=== PATIENT | male | born 1940 | race Caucasian/White ===

== ENCOUNTER → 2016-04-25 | Outpatient (CLI) | payer OTHER | END | disposition home or self-care (01) | LOC: C.LABBFT 08:18 | PROVIDERS: ATTEND Nurse Practitioner Family | DX: E55.9 Vitamin D deficiency, unspecified (principal) ==

== ENCOUNTER → 2016-11-18 | Outpatient (CLI) | payer OTHER | END | disposition home or self-care (01) | LOC: C.LABSPEC 17:29 | PROVIDERS: ATTEND Dermatology | DX: L57.0 Actinic keratosis (principal); L82.1 Other seborrheic keratosis; D04.22 Carcinoma in situ of skin of left ear and external auricular canal; D04.30 Carcinoma in situ of skin of unspecified part of face ==

== ENCOUNTER → 2016-11-25 | Outpatient (CLI) | payer OTHER ==
[~2016-11-25] MED LIST: ASPI-428 PO; ATOR-26 PO; CARV12.52 PO; CHOL100010 PO; FRS/40 PO; ISOS60TA25 PO; LISI40TA PO; NVLNI SC
[2016-11-25 17:29] LABS: ESTIMATED AVERAGE GLUCOSE 157 mg/dl; HA1C FLAG Normal (Normal); PARTIAL THROMBOPLASTIN RATIO 1.2; PROTHROMBIN TIME (PATIENT) 11.1 SECONDS (9.0-12.0)
== END | disposition home or self-care (01) ==
LOC: C.CPL 16:02
PROVIDERS: ATTEND Plastic Surgery
DX: C44.320 Squamous cell carcinoma of skin of unspecified parts of face (principal)

== ENCOUNTER → 2017-01-22 | Outpatient (CLI) | payer OTHER ==
[~2017-01-22] MED LIST changes: -ASPI-428 PO; +HYDR-5688 PO
== END | disposition home or self-care (01) ==
LOC: C.PATHSPEC 17:40
PROVIDERS: ATTEND Plastic Surgery
DX: L90.5 Scar conditions and fibrosis of skin (principal); L57.8 Other skin changes due to chronic exposure to nonionizing radiation

== ENCOUNTER → 2017-03-27 | Outpatient (CLI) | payer OTHER ==
[2017-03-27 12:55] LABS: BASO % 0.6 %; BASO ABS # 0.04 K/uL (0-0.2); EOS % 6.9 %; IG# 0.01 K/uL (0.00-0.02); LYMPH % 30.1 %; LYMPH ABS # 2.17 K/uL (1.2-3.4); MEAN CELL VOLUME 91.5 fL (80-100); MEAN CORPUSCULAR HEMOGLOBIN 30.5 pg (25-34); MEAN CORPUSCULAR HGB CONC 33.3 g/dl (32-36); MEAN PLATELET VOLUME 11.4 fL (7.4-10.4); MONO % 11.5 %; MONO ABS # 0.83 K/uL (0.11-0.59); NEUT % 50.8 %; NEUT ABS # 3.67 K/uL (1.4-6.5); PLATELET COUNT 157 K/uL (130-400); RED CELL DISTRIBUTION WIDTH SD 46.7 fL (36.4-46.3); WHITE BLOOD COUNT 7.22 K/uL (4.8-10.8)
[2017-03-27 14:12] LABS: ALBUMIN 3.7 gm/dl (3.4-5.0); ALT/SGPT 36 U/L (12-78); AST/SGOT 38 U/L (15-37); BLOOD UREA NITROGEN 27 mg/dl (7-18); CALCIUM 9.3 mg/dl (8.5-10.1); CARBON DIOXIDE 27 mmol/L (21-32); CREATININE 1.26 mg/dl (0.60-1.40); GLUCOSE 87 mg/dl (70-99); POTASSIUM 3.9 mmol/L (3.5-5.1); SODIUM 139 mmol/L (136-145)
[2017-03-27 14:13] LABS: ALKALINE PHOSPHATASE 88 U/L (45-117); CHOLESTEROL 83 mg/dl (0-200); LDL CHOLESTEROL CALCULATED 32 mg/dl; TOTAL PROTEIN 7.7 gm/dl (6.4-8.2)
== END | disposition home or self-care (01) ==
LOC: C.LABBFT 08:49
PROVIDERS: ATTEND Physician Assistant Medical
DX: I10 Essential (primary) hypertension (principal); E11.49 Type 2 diabetes mellitus with other diabetic neurological complication; E78.5 Hyperlipidemia, unspecified; E55.9 Vitamin D deficiency, unspecified

== ENCOUNTER 2017-04-19 22:47 | Inpatient (IN) | payer OTHER ==
[~2017-04-19] VITALS: Ht 177.8 cm; Wt 100.8 kg
[2017-04-19] MEDS ORDERED: ASPIRIN 324 MG CHEW ONE (23:02)
--- NOTE | 2017-04-19 23:02 | EMERGENCY ROOM VISIT NOTE ---
History Report prepared by Little: Hilary Rasmussen Under the Supervision of: Dr. Gregory Stuart M.D. First contact with patient: 22:55 Chief Complaint: CHEST PAIN Stated Complaint: CHEST PAIN, LEFT ARM PAIN- CARDIAC HX Nursing Triage Summary: Pt presents with c/o substernal cp around left side of chest and into left arm. 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 Pt states, "I've had this the past couple nights when I go to bed." Denies sob, dizziness/lightheaded, n/v. Pt reports bypass in 1991, stents placed in 2001. History of Present Illness The patient is a 76 year old male who presents to the Emergency Room with complaints of waxing and waning chest pain that started three days ago. The patient rates his pain a 3/10 in severity. He notes he has left arm pain. He states his left arm was weak but now it is more painful. He reports his chest pain is worse when laying down. He notes when he turns his head to the right, he feels a "catch" in his left lower neck. The patient had a bypass surgery in 1991 and stents placed in 2001. His mechanical planner is Dr. Hanson. He notes he has never had a heart catheterization. He does not have a pacemaker in place. He has no history of gallbladder issues. The patient denies any shortness of breath , heart palpitations, dizziness, or abdominal pain. Modifying Factors (Worsening): other (laying flat) Associated Symptoms: No SOB, No abdominal pain Note: Additional symptoms: left arm pain. Denies: heart palpitations, dizziness. Review of Systems See HPI for pertinent positives & negatives. A total of 10 systems reviewed and were otherwise negative. Past Medical & Surgical Medical Problems: (1) NSTEMI (non-ST elevated myocardial infarction) Social History Smoking Status: Former Smoker Marital Status: Housing Status: lives with significant other Current/Historical Medications Scheduled Aspirin (Ecotrin Low Strength), 81 MG PO DAILY Atorvastatin (Lipitor), 80 MG PO HS Carvedilol (Coreg), 12.5 MG PO BID Cholecalciferol (Vitamin D), 3,000 UNITS PO DAILY Furosemide (Lasix), 40 MG PO DAILY Glipizide (Glipizide Er), 10 MG PO BID Insulin Human NPH (Novolin N), 1 DOSE SC BID Insulin Human NPH (Novolin N), 30 UNITS SQ QAM Insulin Human NPH (Novolin N), 34 UNITS SQ QPM Isosorbide Mononitrate Ext Rel (Imdur Ext Rel), 60 MG PO DAILY Lisinopril (Zestril), 40 MG PO DAILY Repaglinide (Prandin), 2-4 MG PO WITH EVENING MEAL Scheduled PRN Hydrocodone/Acetaminophen 5MG/325MG ([place] 5MG/325MG), 1 TABLET PO Q4 PRN for Pain Allergies Coded Allergies: No Known Allergies (Verified , 12/03/16) Physical Exam Vital Signs Date Time Temp Pulse Resp B/P (MAP) Pulse Ox O2 Delivery O2 Flow Rate FiO2 04/20/17 00:04 81 20 172/81 96 Room Air 04/19/17 23:54 76 04/19/17 22:49 36.3 84 16 185/89 96 Room Air Physical Exam GENERAL: Patient is well appearing and in mild distress. HEENT: No acute trauma, normocephalic atraumatic, mucous membranes moist, no nasal congestion, no scleral icterus. NECK: No stridor, no adenopathy, no meningismus, trachea is midline. LUNGS: No dyspnea. Clear to auscultation and equal bilaterally. No wheeze, no rhonchi. HEART: Regular rate and rhythm with periodic extra beats. No murmurs, rubs, gallops appreciated. ABDOMEN: Soft, nontender, bowel sounds positive, no masses appreciated, no peritonitis. BACK: No midline tenderness, no CVA tenderness EXTREMITIES: Normal motion all extremities, no cyanosis, no edema. NEUROLOGIC: Alert and oriented, no acute motor or sensory deficits, no focal weakness, cranial nerves grossly intact. SKIN: No rash, no jaundice, no diaphoresis. Medical Decision & Procedures ER Provider Diagnostic Interpretation: X ray results are stated below per my interpretation: Chest: 1 view: No infiltrate, no effusion, normal cardiac border. Enlarged heart with mild congestive findings, sternotomy wires intact. Laboratory Results 04/19/17 23:00 Red Blood Count 4.95, Mean Corpuscular Volume 90.3, Mean Corpuscular Hemoglobin 30.7, Mean Corpuscular Hemoglobin Concent 34.0, Mean Platelet Volume 10.9, Neutrophils (%) (Auto) 52.6, Lymphocytes (%) (Auto) 27.8, Monocytes (%) (Auto) 12.4, Eosinophils (%) (Auto) 6.2, Basophils (%) (Auto) 0.9, Neutrophils # (Auto ) 4.32, Lymphocytes # (Auto) 2.28, Monocytes # (Auto) 1.02, Eosinophils # (Auto ) 0.51, Basophils # (Auto) 0.07 04/19/17 23:00 Test 04/19/17 23:00 04/19/17 23:10 White Blood Count 8.21 K/uL (4.8-10.8) Red Blood Count 4.95 M/uL (4.7-6.1) Hemoglobin 15.2 g/dL (14.0-18.0) Hematocrit 44.7 % (42-52) Mean Corpuscular Volume 90.3 fL (80-100) Mean Corpuscular Hemoglobin 30.7 pg (25-34) Mean Corpuscular Hemoglobin Concent 34.0 g/dl (32-36) Platelet Count 187 K/uL (130-400) Mean Platelet Volume 10.9 fL (7.4-10.4) Neutrophils (%) (Auto) 52.6 % Lymphocytes (%) (Auto) 27.8 % Monocytes (%) (Auto) 12.4 % Eosinophils (%) (Auto) 6.2 % Basophils (%) (Auto) 0.9 % Neutrophils # (Auto) 4.32 K/uL (1.4-6.5) Lymphocytes # (Auto) 2.28 K/uL (1.2-3.4) Monocytes # (Auto) 1.02 K/uL (0.11-0.59) Eosinophils # (Auto) 0.51 K/uL (0-0.5) Basophils # (Auto) 0.07 K/uL (0-0.2) RDW Standard Deviation 45.7 fL (36.4-46.3) RDW Coefficient of Variation 13.8 % (11.5-14.5) Immature Granulocyte % (Auto) 0.1 % Immature Granulocyte # (Auto) 0.01 K/uL (0.00-0.02) Prothrombin Time 11.0 SECONDS (9.0-12.0) Prothromb Time International Ratio 1.0 (0.9-1.1) Activated Partial Thromboplast Time 28.7 SECONDS (21.0-31.0) Partial Thromboplastin Ratio 1.1 Anion Gap 8.0 mmol/L (3-11) Est Creatinine Clear Calc Drug Dose 45.9 ml/min Estimated GFR () 47.1 Estimated GFR (Non- 40.6 BUN/Creatinine Ratio 21.1 (10-20) Calcium Level 9.0 mg/dl (8.5-10.1) Total Creatine Kinase 127 U/L (39-308) Creatine Kinase MB 1.3 ng/ml (0.5-3.6) Creatine Kinase MB Ratio 1.0 (0-3.0) Troponin I 0.414 ng/ml (0-0.045) Bedside Troponin I 0.480 ng/ml (0-0.045) Laboratory results as reviewed by me. Medications Administered Medications (Trade) Dose Ordered Sig/Malinda Route Start Time Stop Time Status Last Admin Dose Admin Aspirin (Aspirin Chew) 324 mg NOW STAT PO 04/19/17 23:03 04/19/17 23:04 DC 04/19/17 23:03 324 MG Nitroglycerin (Nitrostat Tab) 0.4 mg PRN PRN SL 04/19/17 23:15 04/20/17 02:16 DC 04/19/17 23:09 0.4 MG Nitroglycerin (Nitroglycerin 2% Oint) 1 inch NOW ONCE EXT 04/19/17 23:45 04/19/17 23:46 DC 04/20/17 00:03 1 INCH Heparin Sodium/ Dextrose (Heparin 25,000 Unit/500ml D5W) 25,000 unit STK-MED ONCE .ROUTE 04/19/17 23:54 04/19/17 23:55 DC 04/20/17 00:02 25,000 UNIT ECG Per My Interpretation Indication: chest pain Rate (beats per minute): 74 Rhythm: sinus rhythm Findings: PAC, ST depression (moderate, anterior), other Comparison ECG Date: 10/08/2001 Change: Deepening of T waves in anterior leads when compared to previous, RBBB similar to previous. ED Course 2255: The patient was evaluated in room B10. A complete history and physical exam was performed. 2325: I asked nursing staff to perform a repeat EKG. 2330: Repeat EKG: Improvement in ST depressions, PAC, RBBB, sinus rhythm, rate of 70. 2340: The patient notes his pain has resolved after third NTG. 2345: I discussed pros and cons of Heparin with the patient and risks associated with it. He has agreed to anticoagulation. 2346: I spoke with Dr. Dwyer, Hospitalist, about the patient's case. He will evaluate for further treatment. 2350: I further discussed the patient's case with Dr. Dwyer and reviewed the patient's EKG's. Medical Decision Differential: Cardiac Ischemia (STEMI, NSTEMI, Unstable Angina, etc), Aortic Dissection, Arrhythmia, Pulmonary Embolism, Pneumonia, Pneumothorax, MSK, Infectious, Pericarditis/Myocarditis, Esophageal Rupture, Gastrointestinal, amongst other pathologies entertained. 76 yr old male with extensive cardiac history arrives with 3 evenings of left chest pain tonight radiating to left shoulder. EKG with some depressions without STEMI. Given SLNTG x 3 with improvement in pain, as well as 324mg ASA. CXR without evidence dissection. Pulses intact/equal. Labs with elevated Trop beyond that which expected with renal insufficiency. With his symptoms, history, EKG changes and elevated trop this is consistent with NSTEMI. Discussed heparin contraindications and risks with patient who agrees with anticoagulation. No evidence this is PE, dissection. No abdominal pain as source. Multiple re-evaluations of patient throughout, as well as discussions with hospitalist service. With resolution of pain he does not meet emergent cath criteria. Tolerated heparin well while here in ED. Medication Reconcilliation Current Medication List: was personally reviewed by me Blood Pressure Screening Patient's blood pressure: Elevated blood pressure Will be monitored by hospitalist. Consults Time Called: 2343 Consulting Physician: Dr. Dwyer, Hospitalist Returned Call: [phone] Dwyer, Hospitalist, about the patient's case. He will evaluate for further treatment. Impression Primary Impression: NSTEMI (non-ST elevated myocardial infarction) Critical Care I have personally spent greater than 35 minutes of critical care time in the direct management of this patient. This was a life/limb threatening event. This includes time spent evaluating patient, direct bedside care, chart review, placing orders, interpretation of diagnostic studies, discussion with consultants, patient, and family members, as well as other required patient management activities. This 35 minutes is in excess of all separately billable procedures. Scribe Attestation The scribe's documentation has been prepared under my direction and personally reviewed by me in its entirety. I confirm that the note above accurately reflects all work, treatment, procedures, and medical decision making performed by me. Departure Information Dispostion Being Evaluated By Hospitalist Referrals Navneet Baeza M.D. (PCP) Patient Instructions My [facility]
[2017-04-19] MEDS ORDERED: NITROGLYCERIN 0.4 MG SL PER TAB CHARGE ONE (23:03)
[2017-04-19] MEDS ORDERED: ASPIRIN 324 MG CHEW PO STA (23:03)
[2017-04-19] MEDS ORDERED: NITROGLYCERIN 0.4 MG SL PER TAB CHARGE SL PRN (23:15)
[2017-04-19 23:19] LABS: BASO % 0.9 %; BASO ABS # 0.07 K/uL (0-0.2); EOS % 6.2 %; EOS ABS # 0.51 K/uL (0-0.5); HEMATOCRIT 44.7 % (42-52); HEMOGLOBIN 15.2 g/dL (14.0-18.0); IG# 0.01 K/uL (0.00-0.02); LYMPH % 27.8 %; LYMPH ABS # 2.28 K/uL (1.2-3.4); MEAN CELL VOLUME 90.3 fL (80-100); MEAN CORPUSCULAR HEMOGLOBIN 30.7 pg (25-34); MEAN PLATELET VOLUME 10.9 fL (7.4-10.4); MONO % 12.4 %; MONO ABS # 1.02 K/uL (0.11-0.59); NEUT % 52.6 %; NEUT ABS # 4.32 K/uL (1.4-6.5); PLATELET COUNT 187 K/uL (130-400); RED CELL DISTRIBUTION WIDTH CV 13.8 % (11.5-14.5); RED CELL DISTRIBUTION WIDTH SD 45.7 fL (36.4-46.3); WHITE BLOOD COUNT 8.21 K/uL (4.8-10.8)
[2017-04-19 23:32] LABS: PTT PATIENT 28.7 SECONDS (21.0-31.0)
[2017-04-19 23:43] LABS: CREATININE 1.61 mg/dl (0.60-1.40); POTASSIUM 3.8 mmol/L (3.5-5.1)
[2017-04-19] MEDS ORDERED: NITROGLYCERIN 2% OINTMENT 30GM TUBE EXT ONE (23:45)
[2017-04-19] MEDS ORDERED: HEPARIN SOD (PORCINE) 1000 UNIT/ML 10 ML VIAL ONE (23:53)
[2017-04-19] MEDS ORDERED: HEPARIN 25000 UNIT/500 ML D5W ONE (23:54)
[2017-04-19 23:57] LABS: CKMB 1.3 ng/ml (0.5-3.6)
[2017-04-20] VITALS (9 sets, daily range): BP systolic 124–185; BP diastolic 68–99; PULSE 53–74; TEMP 36.4–37; O2SAT 94–98; Ht 177.8 cm; Wt 100.8 kg
[2017-04-20] MEDS ORDERED: POLYETHYLENE (MIRALAX) 17 GM PACK PO PRN
[2017-04-20] MEDS ORDERED: MoRPHine SULFATE 4 MG/ML 1 ML CARP\\VIAL IV PRN
[2017-04-20] MEDS ORDERED: MAGNESIUM HYDROXIDE SUSP 30 ML UDC PO PRN
[2017-04-20] MEDS ORDERED: ONDANSETRON INJ 2 MG/ML 2 ML VIAL IV PRN
[2017-04-20] MEDS ORDERED: NITROGLYCERIN 0.4 MG SL PER TAB CHARGE SL PRN
[2017-04-20] MEDS ORDERED: ALUMINUM/MAGNESIUM/SIMETH (MAALOX MAX) 30 ML UDC PO PRN
[2017-04-20] MEDS ORDERED: ACETAMINOPHEN 325 MG TAB PO PRN
[2017-04-20] MEDS ORDERED: GLIP-199 PO (00:03)
[2017-04-20] MEDS ORDERED: ASPI-428 PO (00:06)
[2017-04-20] MEDS ORDERED: NVLNI SQ ×2 (00:09→00:11)
[2017-04-20] MEDS ORDERED: REPA2TAB12 PO (00:13)
[2017-04-20] MEDS ORDERED: NITROGLYCERIN 2% OINTMENT 30GM TUBE EXT SCH ×2 (00:15)
--- NOTE | 2017-04-20 00:22 | History and Physical ---
History & Physical Date & Time of Service: Apr 20, 2017 at 00:09 Chief Complaint: Chest Pain, Left Arm Pain- Cardiac Hx Primary Care Physician: Navneet Baeza M.D. History of Present Illness Source: patient, hospital records 76 y/o M Hx HTN, HPL, DM, CAD. Pt developed pain in his left upper chest, radiating to his L arm, accompanied by SOB. Denies N/V, diaphoresis or lightheadedness. His pain was relieved following 3 doses of NTG provided in the ER. An initial troponin is elevated. An EKG revealed anterior T wave inversions. These were present on a previous EKG but were more pronounced. A repeat EKG when his CP subsided resembles his baseline. Labs are also notable for REHAN. Past Medical/Surgical History 1) HTN 2) HPL 3) DM II 4) CAD - 3 V CABG 1991, 5 stents placed 2001 Family History CAD Social History Smoking Status: Former Smoker Marital Status: Allergies Coded Allergies: No Known Allergies (Verified , 12/03/16) Home Medications Scheduled Aspirin (Ecotrin Low Strength), 81 MG PO DAILY Atorvastatin (Lipitor), 80 MG PO HS Carvedilol (Coreg), 12.5 MG PO BID Cholecalciferol (Vitamin D), 3,000 UNITS PO DAILY Furosemide (Lasix), 40 MG PO DAILY Glipizide (Glipizide Er), 10 MG PO BID Insulin Human NPH (Novolin N), 1 DOSE SC BID Isosorbide Mononitrate Ext Rel (Imdur Ext Rel), 60 MG PO DAILY Lisinopril (Zestril), 40 MG PO DAILY Scheduled PRN Hydrocodone/Acetaminophen 5MG/325MG ([place] 5MG/325MG), 1 TABLET PO Q4 PRN for Pain Review of Systems Constitutional: No fever, No chills, No sweats Eyes: No worsening of vision ENT: No hearing loss, No unusual epistaxis, No nasal symptoms Respiratory: + shortness of breath, No cough, No sputum, No wheezing Cardiovascular: + chest pain, No orthopnea, No PND Abdomen: No pain, No nausea, No vomiting Musculoskeletal: No joint pain Genitourinary - Male: No hematuria, No dysuria, No urinary frequency Neurologic: No memory loss, No paralysis, No weakness Psychiatric: No depression symptoms Endocrine: No fatigue Hematologic / Lymphatic: No abnormal bleeding/bruising Integumentary: No rash Allergic / Immunologic: No environmental allergies Physical Exam Vital Signs Date Time Temp Pulse Resp B/P (MAP) Pulse Ox O2 Delivery O2 Flow Rate FiO2 04/20/17 00:04 81 20 172/81 96 Room Air 04/19/17 23:54 76 04/19/17 22:49 36.3 84 16 185/89 96 Room Air General Appearance: WD/WN, no apparent distress Head: normocephalic Eyes: normal inspection ENT: normal ENT inspection, pharynx normal Neck: supple, no JVD Respiratory/Chest: chest non-tender, lungs clear, normal breath sounds Cardiovascular: regular rate, rhythm, no edema, no gallop Abdomen/GI: normal bowel sounds, non tender, soft Back: normal inspection, no CVA tenderness Extremities/Musculoskelatal: normal inspection, no calf tenderness, normal capillary refill Neurologic/Psych: developer relations manager II-XII nml as tested, no motor/sensory deficits, alert, oriented x 3 Skin: normal color Diagnostics Laboratory Results Results Past 24 Hours Test 04/19/17 23:00 04/19/17 23:10 Range/Units White Blood Count 8.21 4.8-10.8 K/uL Red Blood Count 4.95 4.7-6.1 M/uL Hemoglobin 15.2 14.0-18.0 g/dL Hematocrit 44.7 42-52 % Mean Corpuscular Volume 90.3 80-100 fL Mean Corpuscular Hemoglobin 30.7 25-34 pg Mean Corpuscular Hemoglobin Concent 34.0 32-36 g/dl Platelet Count 187 130-400 K/uL Mean Platelet Volume 10.9 7.4-10.4 fL Neutrophils (%) (Auto) 52.6 % Lymphocytes (%) (Auto) 27.8 % Monocytes (%) (Auto) 12.4 % Eosinophils (%) (Auto) 6.2 % Basophils (%) (Auto) 0.9 % Neutrophils # (Auto) 4.32 1.4-6.5 K/uL Lymphocytes # (Auto) 2.28 1.2-3.4 K/uL Monocytes # (Auto) 1.02 0.11-0.59 K/uL Eosinophils # (Auto) 0.51 0-0.5 K/uL Basophils # (Auto) 0.07 0-0.2 K/uL RDW Standard Deviation 45.7 36.4-46.3 fL RDW Coefficient of Variation 13.8 11.5-14.5 % Immature Granulocyte % (Auto) 0.1 % Immature Granulocyte # (Auto) 0.01 0.00-0.02 K/uL Prothrombin Time 11.0 9.0-12.0 SECONDS Prothromb Time International Ratio 1.0 0.9-1.1 Activated Partial Thromboplast Time 28.7 21.0-31.0 SECONDS Partial Thromboplastin Ratio 1.1 Sodium Level 139 136-145 mmol/L Potassium Level 3.8 3.5-5.1 mmol/L Chloride Level 105 98-107 mmol/L Carbon Dioxide Level 26 21-32 mmol/L Anion Gap 8.0 3-11 mmol/L Blood Urea Nitrogen 34 7-18 mg/dl Creatinine 1.61 0.60-1.40 mg/dl Est Creatinine Clear Calc Drug Dose 45.9 ml/min Estimated GFR () 47.1 Estimated GFR (Non- 40.6 BUN/Creatinine Ratio 21.1 10-20 Random Glucose 143 70-99 mg/dl Calcium Level 9.0 8.5-10.1 mg/dl Total Creatine Kinase 127 39-308 U/L Creatine Kinase MB 1.3 0.5-3.6 ng/ml Creatine Kinase MB Ratio 1.0 0-3.0 Troponin I 0.414 0-0.045 ng/ml Bedside Troponin I 0.480 0-0.045 ng/ml CXR normal EKG Sinus, PACs, RBBB, LAFB, ant inversions present on previous EKG - more pronounced Impression Assessment and Plan 76 y/o M Hx HTN, HPL, DM, CAD. Pt developed pain in his left upper chest, radiating to his L arm, accompanied by SOB. Denies N/V, diaphoresis or lightheadedness. His pain was relieved following 3 doses of NTG provided in the ER. An initial troponin is elevated. An EKG revealed anterior T wave inversions. These were present on a previous EKG but were more pronounced. A repeat EKG when his CP subsided resembles his baseline. Labs are also notable for REHAN. 1) NSTEMI - placed on full dose Heparin. NTG/Morphine PRN, ASA, Plavix, Statin , B noel. Pending cardio eval. 2) REHAN - LAsix and Lisinopril held - IVF provided - he uses Lasix for LE edema only and denies a history of CHF so that it is reasonable to hold diuresis for a period. 3) HTN - cont Carvedilol 4) HPL - cont Lipitor 5) DM - placed on SS Full code - Full dose Heparin Total time for this admit including review of labs, meds, imaging, EKG - discussion with pt and ER attending - 35 min Resuscitation Status VTE Prophylaxis Will order VTE Prophylaxis: Yes
[2017-04-20] MEDS ORDERED: IV FLUIDS COMPLETED PRN ×2 (00:30→03:00)
[2017-04-20] MEDS ORDERED: NSS + 20MEQ KCL 1000ML 1,000 ML IV SCH (02:15)
[2017-04-20] MEDS: INSULIN ASPART 100 UNITS/ML 3 ML PEN SC SCH ×3 (06:00→18:00)
[2017-04-20 06:18] LABS: HEMATOCRIT 41.3 % (42-52); HEMOGLOBIN 14.3 g/dL (14.0-18.0); MEAN CELL VOLUME 88.2 fL (80-100); MEAN CORPUSCULAR HEMOGLOBIN 30.6 pg (25-34); MEAN CORPUSCULAR HGB CONC 34.6 g/dl (32-36); MEAN PLATELET VOLUME 10.9 fL (7.4-10.4); PLATELET COUNT 164 K/uL (130-400); RED CELL DISTRIBUTION WIDTH CV 13.8 % (11.5-14.5); RED CELL DISTRIBUTION WIDTH SD 44.8 fL (36.4-46.3); WHITE BLOOD COUNT 7.64 K/uL (4.8-10.8)
[2017-04-20 06:49] LABS: CALCIUM 8.8 mg/dl (8.5-10.1); CREATININE 1.36 mg/dl (0.60-1.40); POTASSIUM 3.9 mmol/L (3.5-5.1)
[2017-04-20] MEDS: ISOSORBIDE MONONITRATE 60 MG TABCR PO SCH (07:58)
[2017-04-20] MEDS: CARVEDILOL 12.5 MG TAB PO SCH ×2 (07:59→20:27)
[2017-04-20 08:14] LABS: PTT PATIENT 291.5 SECONDS (21.0-31.0)
--- NOTE | 2017-04-20 09:50 | DIAGNOSTIC IMAGING REPORT ---
SINGLE VIEW CHEST CLINICAL HISTORY: Atypical chest pain. FINDINGS: An AP, portable, upright chest radiograph is obtained. No prior studies are available for comparison at the time of dictation. The examination is degraded by portable technique and patient rotation. The patient is status post midline sternotomy. The heart is enlarged and there is atherosclerotic calcification of the thoracic aorta. The pulmonary vasculature is noncongested. Airspace opacities are seen in the left mid to lower lung. No large pleural effusion is identified. No pneumothorax is seen. The skeletal structures are osteopenic. The bony thorax is grossly intact. IMPRESSION: 1. Cardiomegaly without radiographic evidence of congestive failure. 2. Airspace opacities are seen in the left mid to lower lung. This may resent chronic change/scarring or could represent an infectious/inflammatory pneumonitis. Clinical correlation will be required. Radiographic follow-up is recommended. Electronically signed by: Rudy Botello M.D. 04/20/2017 9:49 AM Dictated Date/Time: 04/20/2017 9:47 AM
[2017-04-20 10:03] LABS: PTT PATIENT 183.7 SECONDS (21.0-31.0)
[2017-04-20 11:10] LABS: PTT PATIENT 103.1 SECONDS (21.0-31.0)
[2017-04-20] MEDS ORDERED: NURSING VERBAL MED ORDER ONE (11:30)
[2017-04-20] MEDS ORDERED: NITROGLYCERIN 2% OINTMENT 30GM TUBE EXT ONE (11:32)
[2017-04-20] MEDS ORDERED: ASPIRIN 81 MG ECTAB PO STA (11:55)
[2017-04-20] MEDS ORDERED: CLOPIDOGREL BISULFATE 300 MG TAB PO STA (11:55)
[2017-04-20 13:21] LABS: PTT PATIENT 64.8 SECONDS (21.0-31.0)
[2017-04-20] MEDS: HEPARIN 25,000 UNIT/500ML D5W 500 ML IV PRN ×2 (13:41→21:30)
--- NOTE | 2017-04-20 14:05 | CARDIOLOGY CONSULTATION ---
DATE OF CONSULTATION: 04/20/2017 REQUESTING PHYSICIAN: Dr. Abbott. PIANO BUILDER: Chano Paul D.O., [facility] Cardiology for Dr. Navneet Hanson who is the patient's primary dry transfer worker. REASON FOR CONSULTATION: Coronary artery disease, chest discomfort, and non-ST elevation myocardial infarction. Dear Dr. Diana, Thank you for requesting cardiology consultation on Raymond with regards to his anginal symptoms over the last 2 days. He has noted over the last 48 hours when he would lay down to go to bed at night he would have chest tightness and chest pressure, in the central region and epigastric region that then radiated down his left arm. It would last 30-45 minutes and then candelario on its own and then he would have a period of recurrent symptoms that happened each of the last 2 nights and then last night's episode was significant enough that he came to the Emergency Room. His baseline EKGs reveal sinus rhythm with a right bundle branch block and left anterior fascicular block. He has deeper T-wave inversions in V1 and V2 with ST depression in V3-V6 with associated discomfort. His EKG this morning, he continues to have a right bundle and left anterior fascicular block, the T-wave inversions in V1 and V2 are improved and the ST depression in V3-V6 although still present is significantly better. With a heparin drip and nitro paste, his pain which initially was 5/10 is now down to 1/10. He denies any diaphoresis or shortness of breath, palpitations, lightheadedness, dizziness, presyncope, syncope. He denies having a headache. He denies any bleeding, bruising, dark stools, black stools, fevers, chills, sweats, cough, productive sputum. He notes that his appetite has been stable. Weight has been relatively stable. He notes rare lower extremity edema and does not take diuretics. I inquired as to whether he may have had any anginal symptoms over the last days to weeks with activity and he denied that he had no difficulty climbing stairs. He normally takes the trash to the end of the driveway without any difficulty. He is able to climb 2 flights of stairs in his home. Outside of spending time around the house, he describes as not being overly active. He denies a need for any upcoming surgery or colonoscopy. The rest of review of system otherwise negative. PAST MEDICAL HISTORY: 1. Coronary artery disease status post 3-vessel coronary bypass grafting in 1991. 2. History of angioplasty and stenting with 5 stents in 2001. 3. Hypertension. 4. Hyperlipidemia. 5. Diabetes mellitus type 2. SOCIAL HISTORY: He is a former smoker. He is . Denies any current tobacco use. FAMILY HISTORY: Positive for coronary artery disease. ALLERGIES: No known drug allergies. PHYSICAL EXAMINATION: GENERAL: He is awake, alert, oriented x3. He is in no acute distress. He is a well-appearing male who looks his stated age. VITAL SIGNS: His heart rate is 70, blood pressure 155/71, respirations 16 and sats 94% on room air. NECK: 1+ carotid upstrokes, no evidence of carotid bruits. Jugular pressure appeared normal. HEENT: Sclerae is anicteric. His hearing is mildly reduced. LUNGS: Clear to auscultation bilaterally. No rales, rhonchi or wheezing. HEART: Regular rate and rhythm with occasional ectopy. No appreciable murmurs, rubs or gallops. ABDOMEN: Soft, nontender, nondistended. Positive bowel sounds. EXTREMITIES: Trace bilateral lower extremity edema. PSYCHIATRIC: His affect appeared appropriate. NEUROLOGIC: He is awake, alert and oriented x3. IMAGING DATA: EKG is as discussed above. Chest x-ray - cardiomegaly without evidence of heart failure. LABORATORY STUDIES: Hemoglobin 14.3, platelet count of 164. First troponin 0.414, then 1.19 and the third is 3.11. Sodium 140, potassium 3.9, BUN 34, creatinine 1.36. PTT is 103 on heparin. IMPRESSION: 1. Non-ST elevation myocardial infarction. 2. Deeper T-wave inversions V1-V2 and ST depression in V3-V6 with chest pain. 3. Known coronary artery disease status post coronary bypass grafting in 1991 and angioplasty and stenting in 2001. 4. Hypertension. 5. Hyperlipidemia. PLAN AND RECOMMENDATIONS: In discussion with you at the bedside at this point he is on a heparin drip. He is on beta blockers and aspirin. We Plavix loaded him with 600 mg of Plavix and 75 mg thereafter. He will remain on nitro paste an inch q. 6 hours. I discussed with Raymond and his family that he will need a cardiac catheterization to define his coronary anatomy. We discussed the risks and benefits of cardiac catheterization. Risks including but not limited to bleeding or infection of the puncture site, damage to his radial or femoral artery, risk of contrast-induced nephropathy, allergic reaction to contrast and 100,000 risk of heart attack or stroke or dying with the procedure were discussed. They understand the risks and wished to proceed. PLAN: The plan for now is assuming he remains stable with minimal anginal symptoms is to proceed with catheterization tomorrow. He will be n.p.o. after midnight and will reduce his insulin dose in half, and he will remain on sliding scale insulin. If he were to have progressive symptoms before tomorrow morning and became unstable, then at that point, an urgent cardiac catheterization we warranted and we would proceed over the weekend. Dr. Hanson will be returning tomorrow to care for him. While he is n.p.o., I would give him gentle hydration to protect his renal function with normal saline at 75 mL an hour times a liter in total. If his blood pressure remains elevated after the catheterization, he should be started on lisinopril. If medical therapy is his only option for his coronary artery disease, at that point I would consider amlodipine as an antianginal. Further recommendations will be forthcoming after the catheterization. Thank you for allowing us to participate in his care.
[2017-04-20] MEDS: NITROGLYCERIN 2% OINTMENT 30GM TUBE EXT SCH ×2 (15:55→20:00)
[2017-04-20 19:17] LABS: PTT PATIENT 167.6 SECONDS (21.0-31.0)
[2017-04-20] MEDS: ATORVASTATIN 40 MG TAB PO SCH (20:27)
[2017-04-20 21:01] LABS: PTT PATIENT 103.4 SECONDS (21.0-31.0)
--- NOTE | 2017-04-20 21:53 | Progress Note ---
Subjective Date of Service: Apr 20, 2017. Subjective Pt evaluation today including: conversation w/ patient, conversation w/ family ( at bedside), physical exam, chart review, lab review, review of studies, conversation w/ educational consultant (cardiology), review of inpatient medication list Pain: 3/10 chest heaviness during my AM assessment PO Intake: npo Voiding: no voiding problems tele stable with occasional ventricular bigeminy during my AM rounds he reported he had no chest symptoms all night, then he re- developed chest heaviness about 0630 it was 3/10 during my visit I ordered nitropaste, and within 30-45 min his pain was 1/10 or less he had noticed chest symptoms for about 2-3 days prior to coming to the hospital last pm last intervention was a cath with stents in 2001 none since Review of Systems Constitutional: No fever Respiratory: No cough, No shortness of breath Cardiac: + chest pain, No orthopnea, No PND, No edema Abdomen: No pain, No nausea, No vomiting Objective Vital Signs Date Time Temp Pulse Resp B/P (MAP) Pulse Ox O2 Delivery O2 Flow Rate FiO2 04/20/17 20:00 Room Air 04/20/17 19:53 36.5 68 20 135/73 (93) 96 Room Air 04/20/17 16:00 Room Air 04/20/17 15:51 36.8 63 16 124/73 (90) 95 Room Air 04/20/17 12:17 36.4 70 16 155/71 (99) 94 Room Air 04/20/17 12:00 Room Air 04/20/17 11:46 69 152/78 (102) 04/20/17 11:36 157/80 (105) 04/20/17 08:02 36.8 74 20 158/84 (108) 97 Room Air 04/20/17 08:00 Room Air 04/20/17 04:00 98 Room Air 04/20/17 04:00 36.6 70 18 162/68 (99) 95 Room Air 04/20/17 01:48 36.8 71 20 185/99 98 Room Air 04/20/17 01:02 68 18 178/97 96 Nasal Cannula 2.0 04/20/17 00:04 81 20 172/81 96 Room Air 04/19/17 23:54 76 04/19/17 22:49 36.3 84 16 185/89 96 Room Air Physical Exam General Appearance: no apparent distress ENT: pharynx normal Neck: no JVD Respiratory/Chest: lungs clear, no respiratory distress, no accessory muscle use Cardiovascular: regular rate, rhythm, no gallop, no murmur Abdomen: normal bowel sounds, non tender, soft, no organomegaly Extremities: no pedal edema Neurologic/Psychiatric: alert, oriented x 3 Skin: + pertinent finding (sternal scar, midline) Laboratory Results Last 24 Hours Test 04/19/17 23:00 04/19/17 23:10 04/20/17 05:30 04/20/17 06:44 White Blood Count 8.21 K/uL 7.64 K/uL Red Blood Count 4.95 M/uL 4.68 M/uL Hemoglobin 15.2 g/dL 14.3 g/dL Hematocrit 44.7 % 41.3 % Mean Corpuscular Volume 90.3 fL 88.2 fL Mean Corpuscular Hemoglobin 30.7 pg 30.6 pg Mean Corpuscular Hemoglobin Concent 34.0 g/dl 34.6 g/dl Platelet Count 187 K/uL 164 K/uL Mean Platelet Volume 10.9 fL 10.9 fL Neutrophils (%) (Auto) 52.6 % Lymphocytes (%) (Auto) 27.8 % Monocytes (%) (Auto) 12.4 % Eosinophils (%) (Auto) 6.2 % Basophils (%) (Auto) 0.9 % Neutrophils # (Auto) 4.32 K/uL Lymphocytes # (Auto) 2.28 K/uL Monocytes # (Auto) 1.02 K/uL Eosinophils # (Auto) 0.51 K/uL Basophils # (Auto) 0.07 K/uL RDW Standard Deviation 45.7 fL 44.8 fL RDW Coefficient of Variation 13.8 % 13.8 % Immature Granulocyte % (Auto) 0.1 % Immature Granulocyte # (Auto) 0.01 K/uL Prothrombin Time 11.0 SECONDS Prothromb Time International Ratio 1.0 Activated Partial Thromboplast Time 28.7 SECONDS Partial Thromboplastin Ratio 1.1 Sodium Level 139 mmol/L 140 mmol/L Potassium Level 3.8 mmol/L 3.9 mmol/L Chloride Level 105 mmol/L 109 mmol/L Carbon Dioxide Level 26 mmol/L 22 mmol/L Anion Gap 8.0 mmol/L 9.0 mmol/L Blood Urea Nitrogen 34 mg/dl 34 mg/dl Creatinine 1.61 mg/dl 1.36 mg/dl Est Creatinine Clear Calc Drug Dose 45.9 ml/min 54.3 ml/min Estimated GFR () 47.1 57.8 Estimated GFR (Non- 40.6 49.8 BUN/Creatinine Ratio 21.1 24.8 Random Glucose 143 mg/dl 105 mg/dl Calcium Level 9.0 mg/dl 8.8 mg/dl Total Creatine Kinase 127 U/L Creatine Kinase MB 1.3 ng/ml Creatine Kinase MB Ratio 1.0 Troponin I 0.414 ng/ml 1.190 ng/ml Bedside Troponin I 0.480 ng/ml Magnesium Level 2.1 mg/dl Bedside Glucose 103 mg/dl Test 04/20/17 07:02 04/20/17 09:11 04/20/17 10:28 04/20/17 12:04 Activated Partial Thromboplast Time 291.5 SECONDS 183.7 SECONDS 103.1 SECONDS Partial Thromboplastin Ratio 10.9 6.9 4.0 Troponin I 3.110 ng/ml Bedside Glucose 118 mg/dl Test 04/20/17 12:11 04/20/17 16:06 04/20/17 18:25 04/20/17 19:56 Activated Partial Thromboplast Time 64.8 SECONDS 167.6 SECONDS Partial Thromboplastin Ratio 2.5 6.4 Bedside Glucose 153 mg/dl 176 mg/dl Troponin I 2.380 ng/ml Test 04/20/17 20:20 04/20/17 21:25 Activated Partial Thromboplast Time 103.4 SECONDS Partial Thromboplastin Ratio 4.0 Assessment and Plan 76yo male - 1. NSTEMI in setting of known CAD - appreciate Dr. Paul's consult. EKGs with deeper T wave inversions V1/V2 than baseline as well as anterolateral depressions. Cont his imdur. Added nitropaste this AM for quick resolution of his chest symptoms. Cont beta noel. Cont aspirin. Cont heparin infusion. Plavix load today per Dr. Paul's recommendation. Echo ordered. NPO after MN tonight for cath in AM. SERGIO being held due to acute kidney injury. If any recurrent symptoms today then may need to have urgent cath today rather than waiting until the AM. Just had lipids checked on 03/27/17 and were well controlled; defer on rechecking at this time. Hold lasix for now. 2. T2DM - cont novolog ac/hs. FSBS controlled. Likely will need basal lantus but hold off since he will be NPO after MN tonight. Check hemoglobin a1c and TSH. Hold oral agents. 3. HTN - resume SERGIO once renal function has normalized. 4. acute kidney injury - likely 2nd to #1 above; improving already; BMP in am. Hold lasix and SERGIO. 5. DVT proph - heparin drip. 6. FEN - NPO after MN; IVF at that time; BMP am. updated Continued [facility] stay due to: multiple IV medications needed, other (need for cath) Discharge planning: home
[2017-04-20 22:18] LABS: PTT PATIENT 80.2 SECONDS (21.0-31.0)
[2017-04-21] VITALS (17 sets, daily range): BP systolic 109–156; BP diastolic 59–92; PULSE 54–71; TEMP 36.4–37; O2SAT 93–98
[2017-04-21] MEDS ORDERED: SODIUM CHLORIDE 0.9% 1000ML 1,000 ML IV SCH
[2017-04-21] MEDS: NITROGLYCERIN 2% OINTMENT 30GM TUBE EXT SCH ×2 (02:00→10:11)
[2017-04-21 04:02] LABS: CALCIUM 8.4 mg/dl (8.5-10.1); CREATININE 1.37 mg/dl (0.60-1.40); POTASSIUM 4.1 mmol/L (3.5-5.1)
[2017-04-21 04:17] LABS: PTT PATIENT 104.3 SECONDS (21.0-31.0)
[2017-04-21] MEDS ORDERED: HEPARIN SOD (PORCINE) 1000 UNIT/ML 10 ML VIAL ONE (07:11)
[2017-04-21] MEDS ORDERED: NITROGLYCERIN/D5W 100MCG/ML 20ML SYR ONE (07:12)
[2017-04-21] MEDS ORDERED: FENTANYL CITRATE INJ 50 MCG/1 ML 2 ML VIAL ONE (07:14)
[2017-04-21] MEDS ORDERED: MIDAZOLAM HCL 1 MG/ML 2ML VIAL ONE (07:14)
[2017-04-21] MEDS: ASPIRIN 81 MG ECTAB PO SCH (07:17)
[2017-04-21] MEDS: CLOPIDOGREL BISULFATE 75 MG TAB PO SCH (07:18)
[2017-04-21] MEDS ORDERED: CLOPIDOGREL BISULFATE 300 MG TAB PO ONE (08:38)
[2017-04-21] MEDS: INSULIN ASPART 100 UNITS/ML 3 ML PEN SC SCH ×4 (10:10→21:33)
[2017-04-21] MEDS: ISOSORBIDE MONONITRATE 60 MG TABCR PO SCH (10:12)
[2017-04-21] MEDS: CARVEDILOL 12.5 MG TAB PO SCH ×2 (10:12→21:27)
[2017-04-21 11:23] LABS: PTT PATIENT 268.4 SECONDS (21.0-31.0)
[2017-04-21] MEDS ORDERED: NURSING VERBAL MED ORDER ONE (11:45)
--- NOTE | 2017-04-21 12:32 | CARDIAC CATH REPORT ---
REPORT OF CATHETERIZATION AND PERCUTANEOUS CORONARY INTERVENTION INDICATIONS: Unstable angina and non-ST elevated ME in a 76-year-old hypertensive, diabetic, hypercholesterolemic male with a history of remote bypass surgery and subsequent PCI. PROCEDURES PERFORMED: Left heart catheterization, coronary cineangiography, investigation of bypasses, PCI with drug-eluting stent x2 right coronary artery, radiological interpretation and supervision. METHOD: Upon arrival in the cath lab radiological technologist, the patient prepped and draped in usual sterile fashion. After local infiltration with 2% lidocaine, a 6-Niuean sheath was placed in the right femoral artery. Sheath was aspirated and flushed. A 6-Niuean JL4 diagnostic catheter was advanced over wire under fluoroscopic guidance to the central circulation where it was aspirated and flushed. After confirmation of adequate waveform, it was advanced into the left main. Cineangiogram of the left coronary artery obtained and reviewed. Catheter was removed from the body over wire and sheath was aspirated and flushed. A 6-Niuean diagnostic JR4 catheter was advanced over wire under fluoroscopic guidance to the central circulation where it was aspirated and flushed. After confirmation of adequate waveform, it was advanced into the right coronary artery. Cineangiogram of the right coronary artery was obtained and reviewed. Catheter was used to cross the aortic valve in retrograde fashion. Left ventricular end-diastolic pressure was measured. Catheter was removed from the left ventricle to the aorta under continuous pressure monitoring. The catheter was then used to engage the origin of the left subclavian artery. Cineangiograms of the PARISH to the LAD, left internal mammary artery to the LAD were obtained and reviewed. Catheter was removed from the body over wire and sheath was aspirated and flushed. Intravenous heparin was administered and titrated with an ACT in order of 250 seconds. The patient had been on chronic Plavix therapy entering the cath lab radiological technologist. A 6-Niuean AR2 guiding catheter was advanced over wire under fluoroscopic guidance to the central circulation, was aspirated and flushed. After confirmation of adequate waveform, it was advanced into the right coronary artery. Cineangiograms of the right coronary artery were obtained and reviewed. A 0.014-inch gliding pilot instructor wire was advanced through the guiding catheter across the area of stenosis to the apical PDA. A 2.0 Mini Trek 15 angioplasty catheter positioned in the proximal and mid right coronary artery, inflated on multiple occasions to maximum pressure for less than 1 minute. Balloon was withdrawn. A 3.0 Xience 18 stent was positioned in the proximal right coronary artery, inflated to maximum pressure for less than a minute. Balloon was withdrawn. Attempts to pass the stent through the stent were unsuccessful. A Guideliner was advanced into the proximal to mid right coronary artery. After multiple predilations with a 2.5, then a 3.0 x 15 Trek catheter, we were rewarded with advancing a 3.0 Xience 12 stent into the mid right coronary artery, inflated to maximum pressure for less than a minute, balloon was withdrawn. The entire stented segment was postdilated using a 3.0 NC 15 angioplasty catheter for multiple dilations, each less than 1 minute. Balloon was withdrawn. Final cineangiograms were obtained. The wire was removed from the coronary artery, guiding catheter was removed from the right coronary artery under fluoroscopic guidance, removed the body over wire and the sheath was aspirated and flushed. An Angio-Seal was deployed over right femoral artery. The patient returned to his room in good condition. COMPLICATION: None. FINDINGS: Left main is normal. Left anterior descending is totally occluded at its ostium. The left circumflex totally occluded at its origin. A small ramus intermedius is arising from the trifurcation. The left main is patent. The right coronary artery is patent with an eccentric 90% stenosis of the proximal to mid right coronary artery on a turn proximal to a previously stented segment. The remainder of the right coronary artery, the PDA and the posterolateral branches are free of significant disease. Collateral filling of the circumflex is noted. Left ventricular end-diastolic pressure is normal. No significant aortic valve gradient is demonstrated. Final cineangiograms demonstrate no residual stenosis, no uncovered dissection with KATHERINE grade 3 flow in the right coronary artery. IMPRESSION: Successful percutaneous coronary intervention with drug-eluting stent x2 right coronary artery. RECOMMENDATION: For dual antiplatelet therapy per DAPT guidelines.
--- NOTE | 2017-04-21 14:30 | Hospitalist Progress Note ---
Hospitalist Progress Note Date of Service Apr 21, 2017. (Sherine Roland ., EMPERATRIZ-C) Subjective Pt evaluation today including: conversation w/ patient, conversation w/ family (at bedside), physical exam, chart review, lab review, review of studies, review of inpatient medication list Pain: 3/10 central chest soreness PO Intake: Tolerating PO diet Voiding: no voiding problems Patient seen post cath and feeling well. He does complain of a 3/10 soreness in the center of his chest, but he states this is much improved from admission. He denies any other complaints. The patient denies fevers, chills, sweats, palpitations, claudication, cough, wheezing, shortness of breath, nausea, vomiting, abdominal pain, dysuria, hematuria, urinary retention, paralysis, weakness, numbness and tingling. Patient had a code purple called around 1415 this afternoon after having bleeding at his cath site. The patient had also been up to urinate. He became diaphoretic and pale but did not lose consciousness. The patient also became suddenly bradycardic in the 40s and had about 20 point drop in his SBP. Pressure was applied to cath site, patient received IVF bolus and HR/BP improved. EKG did not show acute ischemic changes. The patient denied any chest pain during the episode or dizziness. Additional Comments: See HPI for pertinent positives and negatives. All other systems reviewed and negative. (Sherine Roland ., PA-C) Objective Vital Signs Date Time Temp Pulse Resp B/P (MAP) Pulse Ox O2 Delivery O2 Flow Rate FiO2 04/21/17 12:57 36.6 54 18 112/60 (77) 96 Room Air 04/21/17 12:00 95 Room Air 04/21/17 12:00 36.6 54 18 112/60 (77) 96 Room Air 04/21/17 11:00 36.6 64 16 124/70 (88) 95 Room Air 04/21/17 10:30 36.4 62 16 134/60 (84) 95 Room Air 04/21/17 10:00 36.5 60 16 156/92 (113) 93 Room Air 96.0 04/21/17 09:45 36.5 59 15 139/63 (88) 93 Room Air 04/21/17 09:30 36.5 59 16 121/63 (82) 95 Room Air 04/21/17 09:15 36.5 71 16 133/64 (87) 96 Room Air 04/21/17 08:37 70 16 153/97 (115) 97 Room Air 04/21/17 08:00 95 Room Air 04/21/17 04:00 95 Room Air 2.0 04/21/17 03:30 37.0 57 16 133/71 (91) 95 Room Air 04/21/17 00:00 98 Room Air 04/20/17 23:58 37.0 53 16 141/71 (94) 96 Room Air 04/20/17 20:00 Room Air 04/20/17 19:53 36.5 68 20 135/73 (93) 96 Room Air 04/20/17 16:00 Room Air 04/20/17 15:51 36.8 63 16 124/73 (90) 95 Room Air (Sherine Roland ., PA-C) Physical Exam Notes: General appearance: +Obese. Well-developed, well-nourished, no apparent distress Head: Normocephalic, atraumatic Eyes: Normal inspection, PERRL, EOMI ENT: Normal ENT inspection, hearing grossly normal, pharynx normal Neck: Supple, no JVD, trachea midline Respiratory/Chest: Lungs clear to auscultation, normal breath sounds, no respiratory distress Cardiovascular: Regular rate & rhythm, no gallop, no murmur Abdomen/GI: Normal bowel sounds, non-tender, soft Extremities/Musculoskeletal: Normal inspection, no calf tenderness, no pedal edema Neurological/Psych: Alert, normal mood/affect, oriented x 3 Skin: +Pallor during code purple, had normal color earlier in the morning. Normal color, warm/dry, no rash (Sherine Roland ., PA-C) Laboratory Results Last 24 Hours Test 04/20/17 16:06 04/20/17 18:25 04/20/17 19:56 04/20/17 20:20 Bedside Glucose 153 mg/dl 176 mg/dl Activated Partial Thromboplast Time 167.6 SECONDS 103.4 SECONDS Partial Thromboplastin Ratio 6.4 4.0 Troponin I 2.380 ng/ml Test 04/20/17 21:25 04/21/17 03:24 04/21/17 06:30 04/21/17 08:03 Activated Partial Thromboplast Time 80.2 SECONDS 104.3 SECONDS Partial Thromboplastin Ratio 3.1 4.0 Sodium Level 139 mmol/L Potassium Level 4.1 mmol/L Chloride Level 108 mmol/L Carbon Dioxide Level 23 mmol/L Anion Gap 8.0 mmol/L Blood Urea Nitrogen 26 mg/dl Creatinine 1.37 mg/dl Est Creatinine Clear Calc Drug Dose 53.9 ml/min Estimated GFR () 57.3 Estimated GFR (Non- 49.4 BUN/Creatinine Ratio 18.9 Random Glucose 130 mg/dl Estimated Average Glucose 154 mg/dl Hemoglobin A1c 7.0 % Calcium Level 8.4 mg/dl Thyroid Stimulating Hormone (TSH) 0.644 uIu/ml Bedside Glucose 123 mg/dl Kaolin Activated Coagulation Time 169 SECONDS Test 04/21/17 08:25 04/21/17 10:22 04/21/17 11:19 Kaolin Activated Coagulation Time 263 SECONDS Activated Partial Thromboplast Time 268.4 SECONDS Partial Thromboplastin Ratio 10.1 Bedside Glucose 148 mg/dl (Sherine Roland ., RIKKI) Assessment and Plan 76 y/o male with a history of CAD s/p CABG and stents, HTN, HLD, and DM II who presented with chest pain. NSTEMI--improving -Admit to telemetry. No acute events overnight. Pt in sinus bradycardia/sinus rhythm with HR 50s-60s, as low as 40 overnight. -Trop peaked at 3.11 -Echo with LVEF 55-60%, mild LVH. No WMA. -Cardiac cath today, 2 stents placed in RCA. Continue DAPT -Continue ASA, Plavix, statin, beta noel, Imdur -Cardiology following Bleeding from cath site -Repeat H&H 12.2, had been 14.3 prior to cath -Trend H&H q6h x 4 -Type and screen stat -Prepare 1 unit blood on standby. VSS now but if begins to drop again, transfuse unit -CT abdomen/pelvis to assess for retroperitoneal bleed stat -APTT had been very high this morning at 268, repeat pending Near syncope--likely vasovagal. Pt w/acute blood loss and then had just gotten up to void CAD s/p CABG x 3 in 1991, stents x 5 in 2001; HTN; HLD--stable -Continue ASA 81 mg PO qd, Plavix 75 mg PO qd, Coreg 12.5 mg PO BID, Imdur 60 mg PO qd, Lipitor 80 mg PO qd -Losartan on hold due to REHAN. Creatinine stable today, but will hold one more day to cath. If renal function stable tomorrow, can resume REHAN--improving -Creatinine 1.37 on 04/21, around baseline -Losartan and Lasix held, continue to hold today due to cath, possibly resume tomorrow DM II--HgbA1c 7.0 here -Hold glipizide and Prandin -Insulin sliding scale -Check BSGs q ac and qhs DVT prophylaxis -Hold chemical ppx for now due to bleed -JENIFER hose and SCDs Code Status -Level I, FULL RESUSCITATION STATUS Total time spent in patient care between both patient visits 75 minutes. (Sherine Roland ., PA-C) Attending Attestation: Pt seen/examined, chart reviewed, care plan d/w EMPERATRIZ Roland. I agree w/ the eisenberg components of her documentation. Please see my "code purple" note for additional information. I had 2 visits with Mr. Merritt today. I saw him shortly after returning from the cath. He reported minimal chest "soreness" following the cath but denied orthopnea/ dyspnea. Vitals were stable post-cath. He then had bleeding from his right femoral cath site. Short time later had bradycardia with drop in BP leading to the code purple. He required atropine for the bradycardia. Following the code purple all vitals stabilized gen - pallor during the code purple, but color improved with increase in HR/BP neck - no JVD mouth - MMM heart - nirali, s1, s2, no murmur lungs - CTA b/l abd - soft, NT, BS+ ext - right femoral artery cath site w/o hematoma or active bleeding; pulses both feet 2+ labs - CBC, BMP acceptable this AM repeat Hb this afternoon 12.2 A/P: NSTEMI 2nd to RCA occlusion s/p [address] Mehta bradycardia with hypotension - suspect vagal event in setting of acute blood loss anemia and micturition - improved/resolved with IV fluid bolus/atropine/ time mild acute blood loss anemia 2nd to bleeding from fem cath site - CT w/o retroperitoneal bleeding HTN acute kidney injury improved T2DM - uncontrolled - add lantus family extensively updated during the code purple repeat labs in AM again critical care time was about 40 minutes Lebron Abbott MD (Lebron Abbott MD)
--- NOTE | 2017-04-21 14:35 | ECHOCARDIOGRAM REPORT ---
*NOTICE TO RECEIVING REPUBLICAN AGENCY This information is strictly Confidential and protected under [place] law. [place] law prohibits you from making any further disclosure of this information unless further disclosure is expressly permitted by the written consent of the person to whom it pertains or is authorized by law. A general authorization for the release of medical or other information is not sufficient for this purpose. Hospital accepts no responsibility if the information is made available to any other person, INCLUDING THE PATIENT. Interpretation Summary * Name: KARUNA BLANTON Study Date: 04/20/2017 02:14 PM BP: 158/84 mmHg * Patient Location: C.2E\S\E212\S\1 HR: 74 * : 1940 (M/d/yyyy) Gender: Male Height: 70 in * Age: 76 yrs Ethnicity: CA Weight: 223 lb * Ordering Physician: Lebron Abbott * Referring Physician: Self, Referred * Performed By: Zarina Garcia RDCS * * Reason For Study: Chest Pain * BSA: 2.2 m2 * -- Conclusions -- * Left ventricular systolic function is normal. * No definite wall motion abnormalities. * Ejection Fraction = 55-60%. * Mild left ventricular hypertrophy. * No significant valvular pathology. Procedure Details * A complete two-dimensional transthoracic echocardiogram was performed (2D, M-mode, Doppler and color flow Doppler). * The study was technically difficult. * The study was technically difficult, but visualization was adequate with the administration of Definity ultrasound contrast. * There were technical limitations due to patient'sbody habitus * A contrast injection of Definity was performed to improve assessment of LV function. * Contrast was injected into an intravenous site in the left arm. * One vial of Definity ultrasound contrast was diluted in normal saline to a total volume of 10 ml. A total of '2' ml of solution was administered during imaging. * Lot # [id number] of Definity utilized for procedure. * Expiration date . * The attending nurse who injected the contrast agent was Oriana Dhillon RN. Left Ventricle * The left ventricle is normal in size. * There is mild concentric left ventricular hypertrophy. * Ejection Fraction = 55-60%. * Left ventricular systolic function is normal. * No definite wall motion abnormalities. Right Ventricle * The right ventricle is grossly normal size. * The right ventricular systolic function is normal as assessed by tricuspid annular plane systolic excursion (TAPSE) (normal >1.5 cm). Atria * The left atrium is mildly dilated. * Right atrial size is normal. * There is no evidence of atrial septal defect, but resolution does not allow assessment for a patent foramen ovale. Mitral Valve * The mitral valve is grossly normal. * Mitral stenosis is absent. * Significant mitral regurgitation is absent. Tricuspid Valve * The tricuspid valve is not well visualized, but is grossly normal. * Tricuspid stenosis is absent. * There is mild tricuspid regurgitation. Aortic Valve * The aortic valve is trileaflet. * The aortic valve opens well. * No hemodynamically significant valvular aortic stenosis. * There is no significant aortic regurgitation. Pulmonic Valve * The pulmonary valve is not well seen, but the Doppler examination is normal without significant regurgitation or stenosis. Great Vessels * The aortic root is normal size. * The pulmonary is not well visualized. Pericardium/Pleural * There is no pericardial effusion. Great Vessels * Inferior vena cava not well visualized. MMode 2D Measurements and Calculations IVSd 1.3 cm IVSs 1.6 cm LVIDd 4.7 cm LVIDs 3.1 cm LVPWd 1.3 cm LVPWs 2.3 cm IVS/LVPW 1.1 FS 35.0 % EDV(Teich) 103.8 ml ESV(Teich) 37.1 ml EF(Teich) 64.2 % EDV(cubed) 105.7 ml ESV(cubed) 29.0 ml EF(cubed) 72.5 % % IVS thick 19.5 % % LVPW thick 87.9 % LV mass(C)d 237.4 grams LV mass(C)dI 108.6 grams/m\S\2 LV mass(C)s 263.4 grams LV mass(C)sI 120.5 grams/m\S\2 SV(Teich) 66.6 ml SI(Teich) 30.5 ml/m\S\2 SV(cubed) 76.6 ml SI(cubed) 35.0 ml/m\S\2 Ao root diam 3.5 cm Ao root area 9.8 cm\S\2 ACS 2.2 cm LA dimension 5.1 cm LA/Ao 1.4 LVAd ap4 30.0 cm\S\2 LVLd ap4 7.8 cm EDV(MOD-sp4) 94.6 ml EDV(sp4-el) 97.8 ml LVAs ap4 15.8 cm\S\2 LVLs ap4 6.5 cm ESV(MOD-sp4) 31.3 ml ESV(sp4-el) 32.6 ml EF(MOD-sp4) 66.9 % EF(sp4-el) 66.7 % LVAd ap2 20.9 cm\S\2 LVLd ap2 7.2 cm EDV(MOD-sp2) 49.3 ml EDV(sp2-el) 51.6 ml LVAs ap2 12.3 cm\S\2 LVLs ap2 5.7 cm ESV(MOD-sp2) 21.2 ml ESV(sp2-el) 22.5 ml EF(MOD-sp2) 57.1 % EF(sp2-el) 56.5 % LVLd %diff -8.53 % EDV(MOD-bp) 69.9 ml LVLs %diff -12.78 % ESV(MOD-bp) 26.6 ml EF(MOD-bp) 62.0 % SV(MOD-sp4) 63.3 ml SI(MOD-sp4) 29.0 ml/m\S\2 SV(MOD-sp2) 28.1 ml SI(MOD-sp2) 12.9 ml/m\S\2 SV(MOD-bp) 43.3 ml SI(MOD-bp) 19.8 ml/m\S\2 SV(sp4-el) 65.2 ml SI(sp4-el) 29.8 ml/m\S\2 SV(sp2-el) 29.2 ml SI(sp2-el) 13.3 ml/m\S\2 Doppler Measurements and Calculations MV E max gloria 79.9 cm/sec MV A max gloria 84.1 cm/sec MV E/A 0.95 MV dec time 0.47 sec Ao V2 max 127.7 cm/sec Ao max PG 6.5 mmHg Ao max PG (full) 2.0 mmHg LV V1 max PG 4.5 mmHg LV V1 max 105.9 cm/sec PA V2 max 104.8 cm/sec PA max PG 4.4 mmHg TR max gloria 192.4 cm/sec
[2017-04-21 14:43] LABS: HEMATOCRIT 35.9 % (42-52); HEMOGLOBIN 12.2 g/dL (14.0-18.0)
[2017-04-21 15:02] LABS: PTT PATIENT 53.5 SECONDS (21.0-31.0)
--- NOTE | 2017-04-21 15:23 | DIAGNOSTIC IMAGING REPORT ---
ABDOMEN AND PELVIS CT WITHOUT CONTRAST CT DOSE: 780.53 mGy.cm HISTORY: Concern for acute complication status post right femoral catheterization right femoral catheterization; acute hemorrhage TECHNIQUE: Multiaxial CT images of the abdomen and pelvis were performed without contrast. A dose lowering technique was utilized adhering to the principles of ALARA. COMPARISON STUDY: None. FINDINGS: Subpleural reticular and groundglass opacities are noted at the level of the lung bases with mild bibasilar bronchial wall thickening and areas of mild mucous plugging of the bronchi. Nonspecific 4 mm nodule of the right lung base is noted on image 15 series 2. 6 mm nodule of the right lower lobe is seen on image 26 series 3. Imaged inferior cardiac chambers are moderately enlarged with coronary arterial disease. There is no pneumatosis or pneumoperitoneum identified. Evaluation of the solid abdominal organs is limited without the use of contrast. Within the limitations of the study, the liver, spleen, and adrenal glands are within normal limits. Moderate to severe generalized pancreatic atrophy with fatty replacement. Layering gallstones are seen within the gallbladder lumen with probable [place] The gallbladder fundus. No CT evidence of acute cholecystitis. Contrast is noted within the bilateral renal collecting systems. Low attenuating ovoid 2.7 cm lesion of the superior pole left kidney suggests renal cyst. There is mild prominence of the lateral interpolar left kidney without discrete lesion identified on this noncontrast study. Mild nonspecific bilateral perinephric stranding. Ureters appear unremarkable. Reticulation of the urinary bladder allen noted with prostamegaly. Bladder diverticula are seen measuring up to 2.4 x 2.2 cm. Small fat filled left inguinal hernia. No aortic aneurysm or pathologic adenopathy identified. Mildly enlarged right external iliac chain lymph node measures 9 mm and image 447 series 3, nonspecific. Stomach is distended. No bowel obstruction or focal bowel wall thickening. Moderate stool volume of the rectum. Mild colonic diverticulosis without CT evidence of acute diverticulitis. Normal appendix. There is mild stranding about the right inguinal tissues with skin defect noted on image 47 series 3. No large drainable fluid collections identified. No retroperitoneal hemorrhage. Bilateral gynecomastia. Degenerative changes about the pelvis, hips and spine. IMPRESSION: 1. Mild subcutaneous stranding about the right inguinal tissues adjacent to the femoral artery without focal fluid collection or retroperitoneal hemorrhage. 2. Bibasilar subsegmental atelectasis with interstitial scarring. Solid nodules of the right lung base measure up to 6 mm. 3. Cholelithiasis without CT evidence of acute cholecystitis. 4. Colonic diverticulosis without diverticulitis. 5. Prostamegaly with evidence of chronic bladder outlet obstruction. Electronically signed by: David Rodriguez M.D. 04/21/2017 3:21 PM Dictated Date/Time: 04/21/2017 3:13 PM
--- NOTE | 2017-04-21 15:25 | Progress Note ---
Progress Note Date of Service Apr 21, 2017. Progress Note time - 1520 code purple note - According to staff the patient had bled from his right femoral artery catheterization site early this afternoon. The laboratory monitor staff had come to bedside to help assist with control of the bleeding. The bleeding indeed did stop with pressure. Shortly after the patient had to void and right after his HR dropped into the 30s (sinus nirali). There was no pause or AV block. The patient's blood pressure also dropped into the 90s systolic. Upon arrival he was in a mild amount of trendelenberg and appeared pale. His HR was now in the 40s. He apparently had received atropine 1mg x 1. Within a few minutes his HR was in the 60s with SBP of about 110. He never lost consciousness, and reported no chest pain, abd pain, or dyspnea. EKG reviewed - less T wave inversions in V1, V2; ST segment depressions in V4- V6 were resolved A STAT H/H and PTT were drawn - Hb was 12.2. PTT was 55. He was sent to CT to r/o retroperitoneal hemorrhage. Blood consent was obtained as precautionary measure. Dr. Mehta, cardiology, came to bedside to assess the patient. Hopefully this was a vagal event in the setting of acute bleeding from his cath site as well as micturition. Will await CT. Plan for serial H/H's as well. Family updated by Ms. Roland as well as myself and Dr. Mehta. total critical care time about 40 min Lebron Abbott MD
[2017-04-21] MEDS ORDERED: DEXTROSE 50% 50 ML SYR IV PRN (21:00)
[2017-04-21] MEDS ORDERED: GLUCOSE 40% GEL 15 GM TUBE PO PRN (21:00)
[2017-04-21] MEDS ORDERED: GLUCAGON FOR INJ 1 MG VIAL SQ PRN (21:00)
[2017-04-21] MEDS ORDERED: GLUCOSE 10 TABS/TUBE PO PRN (21:00)
[2017-04-21 21:15] LABS: HEMATOCRIT 38.1 % (42-52); HEMOGLOBIN 12.6 g/dL (14.0-18.0)
[2017-04-21] MEDS: ATORVASTATIN 40 MG TAB PO SCH (21:27)
[2017-04-21] MEDS: INSULIN GLARGINE SOLOSTAR 100 UNITS/ML 3 ML PEN SC SCH (21:29)
[2017-04-22] VITALS (10 sets, daily range): BP systolic 120–174; BP diastolic 57–87; PULSE 55–75; TEMP 36.4–36.8; O2SAT 94–99
[2017-04-22] MEDS ORDERED: NURSING VERBAL MED ORDER ONE (00:45)
[2017-04-22 02:44] LABS: HEMATOCRIT 36.1 % (42-52); HEMOGLOBIN 12.3 g/dL (14.0-18.0)
[2017-04-22] MEDS: ISOSORBIDE MONONITRATE 60 MG TABCR PO SCH (08:07)
[2017-04-22] MEDS: CARVEDILOL 12.5 MG TAB PO SCH ×2 (08:07→19:50)
[2017-04-22] MEDS: CLOPIDOGREL BISULFATE 75 MG TAB PO SCH (08:07)
[2017-04-22] MEDS: ASPIRIN 81 MG ECTAB PO SCH (08:07)
[2017-04-22] MEDS: INSULIN ASPART 100 UNITS/ML 3 ML PEN SC SCH ×4 (08:10→19:53)
[2017-04-22 08:58] LABS: BASO % 0.4 %; BASO ABS # 0.03 K/uL (0-0.2); EOS % 5.3 %; EOS ABS # 0.37 K/uL (0-0.5); HEMATOCRIT 37.4 % (42-52); HEMOGLOBIN 12.7 g/dL (14.0-18.0); IG# 0.01 K/uL (0.00-0.02); LYMPH % 19.2 %; LYMPH ABS # 1.35 K/uL (1.2-3.4); MEAN CELL VOLUME 89.9 fL (80-100); MEAN CORPUSCULAR HEMOGLOBIN 30.5 pg (25-34); MEAN PLATELET VOLUME 10.5 fL (7.4-10.4); MONO % 9.1 %; MONO ABS # 0.64 K/uL (0.11-0.59); NEUT % 65.9 %; NEUT ABS # 4.62 K/uL (1.4-6.5); PLATELET COUNT 146 K/uL (130-400); RED CELL DISTRIBUTION WIDTH CV 14.2 % (11.5-14.5); RED CELL DISTRIBUTION WIDTH SD 46.6 fL (36.4-46.3); WHITE BLOOD COUNT 7.02 K/uL (4.8-10.8)
[2017-04-22 09:27] LABS: CALCIUM 8.5 mg/dl (8.5-10.1); CREATININE 1.37 mg/dl (0.60-1.40); POTASSIUM 4.1 mmol/L (3.5-5.1)
--- NOTE | 2017-04-22 13:42 | CARDIOLOGY PROGRESS NOTE ---
DATE: 04/22/2017 SUBJECTIVE: Mr. Merritt is resting comfortably in bedside chair without complaints of chest pain or dyspnea. He is anxious for hospital discharge. OBJECTIVE: VITAL SIGNS: Blood pressure 128/64 with a regular pulse of 55. Respiratory rate is 20 and the patient is afebrile at 36.5 degrees Celsius. Saturations 95% on room air. NECK: Supple with full carotid upstrokes. There are no carotid bruits. Jugular venous pressure is flat at 90 degrees. There is no thyromegaly. CARDIOVASCULAR: Reveals a regular rhythm with a normal S1 and S2. Heart sounds are distant. No obvious murmurs. LUNGS: Clear without rales, rhonchi, or wheezes. ABDOMEN: Soft, nontender without bruits. EXTREMITIES: Show intact radial artery pulses bilaterally. Right groin dressing is dry and intact. No peripheral edema. DATA: CBC notes hemoglobin of 12.7, hematocrit 37.4, white count 7.0, platelet count 146,000. Electrolytes note a sodium 137, potassium 4.1, chloride 109, bicarbonate 23, BUN 23, creatinine 1.3, and a glucose of 206. associate curator is benign. IMPRESSION AND PLAN: 1. Non-ST elevation myocardial infarction - status post right coronary stents x2 in the proximal to mid portion of the vessel. The patient now asymptomatic, anxious for hospital discharge. 2. Coronary artery disease -- status post coronary artery bypass grafting x3 in 1991. 3. History of intracoronary stenting - 5 stents in 2001. 4. Hypertension -- controlled. 5. Hypercholesterolemia. 6. Diabetes mellitus.
[2017-04-22] MEDS ORDERED: PLV75 PO (13:46)
--- NOTE | 2017-04-22 13:50 | Discharge Instructions ---
Discharge Instructions Date of Service Apr 23, 2017. Admission Reason for Admission: Nstemi Discharge Discharge Diagnosis / Problem: Non-ST elevated myocardial infarction Discharge Goals Goal(s): Decrease discomfort, Improve function, Diagnostic testing, Therapeutic intervention Activity Recommendations Activity Limitations: per Instructions/Follow-up section . Instructions / Follow-Up Instructions / Follow-Up You were admitted to the hospital presenting with a non-ST elevated myocardial infarction (heart attack). You underwent a cardiac catheterization, and 2 new stents were placed in your right coronary artery. You did have some bleeding at the cath site following the procedure, but this has remained stable. You are now medically cleared for discharge. You were also incidentally noted to have 2 nodules in your right lung. You will need to have a CT Chest as an outpatient with Dr. Baeza to follow up on these. Care for the Catheter Insertion Site * Cover the area with a small adhesive bandage. It is normal for the catheter insertion site to be black and blue for a couple of days. The site may also be slightly swollen and pink, and there may be a small lump (about the size of a quarter) at the site. * Wash the catheter insertion site at least once daily with soap and water. Place soapy water on your hand or washcloth and gently wash the insertion site; do not rub. * Keep the area clean and dry when you are not showering. * Do not use creams, lotions or ointment on the wound site. * Wear loose clothes and loose underwear. * Do not take a bath, tub soak, go in a Jacuzzi, or swim in a pool or murphy for one week after the procedure. Activity Guidelines Your doctor will tell you when you can resume activities. In general, you will need to take it easy for the first two days after you get home. You can expect to feel tired and weak the day after the procedure. Take walks around your house and plan to rest during the day. For femoral cardiac cath * Do not strain during bowel movements for the first 3 to 4 days after the procedure to prevent bleeding from the catheter insertion site. * Avoid heavy lifting (more than 10 pounds) and pushing or pulling heavy objects for the first 5 to 7 days after the procedure. * Do not participate in strenuous activities for 5 days after the procedure. * You may climb stairs if needed, but walk up and down the stairs more slowly than usual. * Gradually increase your activities until you reach your normal activity level within one week after the procedure. * Do not drive for 2-3 days following your procedure. Medications: *You have been started on a medication called Plavix (clopidogrel) 75 mg daily. Please take this in addition to your baby aspirin. *You have also been given nitroglycerin to use as needed. You may take 1 tablet under the tongue every 5 minutes as needed for chest pain. Do not exceed 3 doses. Even after taking the nitroglycerin, you should still go to the ER or call 911. *Continue your other home medications as prescribed. Follow up: *You have been scheduled to follow up with your primary care provider and cardiology. Please seek medical attention if you experience fevers, chills, sweats, dizziness/lightheadedness, loss of consciousness, chest pain, shortness of breath, nausea, vomiting, numbness or tingling. Current Hospital Diet Patient's current hospital diet: AHA Diet (Heart Healthy), Diabetes Type 2 Diet Discharge Diet Recommended Diet: AHA Diet (Heart Healthy), Diabetes Type 2 Diet Procedures Procedures Performed: Cardiac catheterization CT abdomen/pelvis Pending Studies Studies pending at discharge: no Laboratory Results Hemoglobin A1c Test 04/21/17 03:24 Range/Units Estimated Average Glucose 154 mg/dl Hemoglobin A1c 7.0 H 4.5-5.6 % Lipid Panel Test 03/27/17 08:52 Range/Units Triglycerides Level 100 0-150 mg/dl Cholesterol Level 83 0-200 mg/dl HDL Cholesterol 31 mg/dl Cholesterol/HDL Ratio 2.7 LDL Cholesterol, Calculated 32 mg/dl Medical Emergencies . Who to Call and When: Medical Emergencies: If at any time you feel your situation is an emergency, please call 911 immediately. . Non-Emergent Contact Non-Emergency issues call your: Primary Care Provider, Quarter Backer Call Non-Emergent contact if: you have a fever, your pain is not controlled, your pain is worsening, your pain is unusual for you, your pain is concerning you, wound has increased drainage, wound has increased redness, wound has increased pain, you have any medication questions . Past History Medical & Surgical History: (1) NSTEMI (non-ST elevated myocardial infarction) . "Provider Documentation" section prepared by Sherine Roland. .
--- NOTE | 2017-04-22 15:13 | Hospitalist Progress Note ---
Hospitalist Progress Note Date of Service Apr 22, 2017. (Sherine Roland ., CINDYC) Subjective Pt evaluation today including: conversation w/ patient, conversation w/ family ( at bedside), physical exam, chart review, lab review, review of studies, conversation w/ networks software consultant (spoke with Dr. Sorenson), review of inpatient medication list Pain: None PO Intake: Tolerating PO diet Voiding: no voiding problems Patient reports feeling well. He denies any chest pain or complaints. The patient denies fevers, chills, sweats, chest pain, palpitations, claudication, cough, wheezing, shortness of breath, nausea, vomiting, abdominal pain, dysuria , hematuria, urinary retention, paralysis, weakness, numbness and tingling. Additional Comments: See HPI for pertinent positives and negatives. All other systems reviewed and negative. (Sherine Roland ., EMPERATRIZ-C) Objective Vital Signs Date Time Temp Pulse Resp B/P (MAP) Pulse Ox O2 Delivery O2 Flow Rate FiO2 04/22/17 12:00 95 Room Air 04/22/17 11:15 36.5 55 20 128/64 (85) 95 Room Air 04/22/17 08:00 95 Room Air 04/22/17 07:55 36.8 63 18 136/60 (85) 95 Room Air 04/22/17 04:00 95 Room Air 04/22/17 03:48 36.8 63 18 120/57 (78) 95 Room Air 04/22/17 00:20 36.4 60 14 131/76 (94) 94 04/22/17 00:00 97 Room Air 04/21/17 20:00 97 Room Air 04/21/17 19:38 36.6 63 20 131/79 (96) 96 Room Air 04/21/17 16:30 69 16 109/59 (76) 94 Room Air 04/21/17 16:00 95 Room Air (Sherine Roland ., EMPERATRIZ-C) Physical Exam Notes: General appearance: +Obese. Well-developed, well-nourished, no apparent distress Head: Normocephalic, atraumatic Eyes: Normal inspection, PERRL, EOMI ENT: Normal ENT inspection, hearing grossly normal, pharynx normal Neck: Supple, no JVD, trachea midline Respiratory/Chest: Lungs clear to auscultation, normal breath sounds, no respiratory distress Cardiovascular: Regular rate & rhythm, no gallop, no murmur Abdomen/GI: Normal bowel sounds, non-tender, soft Extremities/Musculoskeletal: Normal inspection, no calf tenderness, no pedal edema Neurological/Psych: Alert, normal mood/affect, oriented x 3 Skin: Normal color, warm/dry, no rash (Sherine Roland ., RIKKI) Laboratory Results Last 24 Hours Test 04/21/17 16:10 04/21/17 19:55 04/21/17 20:43 04/22/17 02:30 Bedside Glucose 185 mg/dl 203 mg/dl Hemoglobin 12.6 g/dL 12.3 g/dL Hematocrit 38.1 % 36.1 % Test 04/22/17 06:48 04/22/17 08:28 04/22/17 10:57 Bedside Glucose 135 mg/dl 207 mg/dl White Blood Count 7.02 K/uL Red Blood Count 4.16 M/uL Hemoglobin 12.7 g/dL Hematocrit 37.4 % Mean Corpuscular Volume 89.9 fL Mean Corpuscular Hemoglobin 30.5 pg Mean Corpuscular Hemoglobin Concent 34.0 g/dl Platelet Count 146 K/uL Mean Platelet Volume 10.5 fL Neutrophils (%) (Auto) 65.9 % Lymphocytes (%) (Auto) 19.2 % Monocytes (%) (Auto) 9.1 % Eosinophils (%) (Auto) 5.3 % Basophils (%) (Auto) 0.4 % Neutrophils # (Auto) 4.62 K/uL Lymphocytes # (Auto) 1.35 K/uL Monocytes # (Auto) 0.64 K/uL Eosinophils # (Auto) 0.37 K/uL Basophils # (Auto) 0.03 K/uL RDW Standard Deviation 46.6 fL RDW Coefficient of Variation 14.2 % Immature Granulocyte % (Auto) 0.1 % Immature Granulocyte # (Auto) 0.01 K/uL Sodium Level 137 mmol/L Potassium Level 4.1 mmol/L Chloride Level 109 mmol/L Carbon Dioxide Level 23 mmol/L Anion Gap 5.0 mmol/L Blood Urea Nitrogen 23 mg/dl Creatinine 1.37 mg/dl Est Creatinine Clear Calc Drug Dose 53.7 ml/min Estimated GFR () 57.3 Estimated GFR (Non- 49.4 BUN/Creatinine Ratio 16.4 Random Glucose 206 mg/dl Calcium Level 8.5 mg/dl (Sherine Roland ., EMPERATRIZ-Faraz) Diagnostic Results Reviewed the following studies and agree with interpretation as follows: ABDOMEN AND PELVIS CT WITHOUT CONTRAST CT DOSE: 780.53 mGy.cm HISTORY: Concern for acute complication status post right femoral catheterization right femoral catheterization; acute hemorrhage TECHNIQUE: Multiaxial CT images of the abdomen and pelvis were performed without contrast. A dose lowering technique was utilized adhering to the principles of ALARA. COMPARISON STUDY: None. FINDINGS: Subpleural reticular and groundglass opacities are noted at the level of the lung bases with mild bibasilar bronchial wall thickening and areas of mild mucous plugging of the bronchi. Nonspecific 4 mm nodule of the right lung base is noted on image 15 series 2. 6 mm nodule of the right lower lobe is seen on image 26 series 3. Imaged inferior cardiac chambers are moderately enlarged with coronary arterial disease. There is no pneumatosis or pneumoperitoneum identified. Evaluation of the solid abdominal organs is limited without the use of contrast. Within the limitations of the study, the liver, spleen, and adrenal glands are within normal limits. Moderate to severe generalized pancreatic atrophy with fatty replacement. Layering gallstones are seen within the gallbladder lumen with probable [place] The gallbladder fundus. No CT evidence of acute cholecystitis. Contrast is noted within the bilateral renal collecting systems. Low attenuating ovoid 2.7 cm lesion of the superior pole left kidney suggests renal cyst. There is mild prominence of the lateral interpolar left kidney without discrete lesion identified on this noncontrast study. Mild nonspecific bilateral perinephric stranding. Ureters appear unremarkable. Reticulation of the urinary bladder allen noted with prostamegaly. Bladder diverticula are seen measuring up to 2.4 x 2.2 cm. Small fat filled left inguinal hernia. No aortic aneurysm or pathologic adenopathy identified. Mildly enlarged right external iliac chain lymph node measures 9 mm and image 447 series 3, nonspecific. Stomach is distended. No bowel obstruction or focal bowel wall thickening. Moderate stool volume of the rectum. Mild colonic diverticulosis without CT evidence of acute diverticulitis. Normal appendix. There is mild stranding about the right inguinal tissues with skin defect noted on image 47 series 3. No large drainable fluid collections identified. No retroperitoneal hemorrhage. Bilateral gynecomastia. Degenerative changes about the pelvis, hips and spine. IMPRESSION: 1. Mild subcutaneous stranding about the right inguinal tissues adjacent to the femoral artery without focal fluid collection or retroperitoneal hemorrhage. 2. Bibasilar subsegmental atelectasis with interstitial scarring. Solid nodules of the right lung base measure up to 6 mm. 3. Cholelithiasis without CT evidence of acute cholecystitis. 4. Colonic diverticulosis without diverticulitis. 5. Prostamegaly with evidence of chronic bladder outlet obstruction. (Sherine Roland ., PA-C) Assessment and Plan 76 y/o male with a history of CAD s/p CABG and stents, HTN, HLD, and DM II who presented with chest pain. NSTEMI--improving -Admit to telemetry. No acute events overnight. Pt in sinus sinus rhythm with HR 60s-70s. -Trop peaked at 3.11 -Echo with LVEF 55-60%, mild LVH. No WMA. -Cardiac cath on 04/22, 2 stents placed in RCA. Continue DAPT -Continue ASA, Plavix, statin, beta noel, Imdur -Cardiology following, appreciate recs: Spoke with Dr. Sorenson, stable for discharge from cardiac standpoint Bleeding from cath site--resolved -Hgb has remained stable in 12s -CT abdomen/pelvis negative for fluid collection or retroperitoneal hemorrhage Near syncope--likely vasovagal. Pt w/acute blood loss and then had just gotten up to void, no reoccurrence CAD s/p CABG x 3 in 1991, stents x 5 in 2001; HTN; HLD--stable -Continue ASA 81 mg PO qd, Plavix 75 mg PO qd, Coreg 12.5 mg PO BID, Imdur 60 mg PO qd, Lipitor 80 mg PO qd -Lisinopril on hold due to REHAN on admission. Will resume tomorrow REHAN--resolved -Creatinine remains stable, at baseline -Resume Lasix and lisinopril tomorrow am DM II--HgbA1c 7.0 here -Hold glipizide and Prandin -Insulin sliding scale -Check BSGs q ac and qhs DVT prophylaxis -Hold chemical ppx for now due to bleed -JENIFER witt and SCDs Code Status -Level I, FULL RESUSCITATION STATUS Dispo -Pt walked in hallway today, very slow and weak -PT/OT evaluate and treat -Anticipate d/c tomorrow Called back to room in afternoon by nursing. Pt upset about canceled discharge. After talking with patient, he is agreeable to stay until the morning for physical therapy to see him and clear him. He asks to not be disturbed during the night as he isn't sleeping here. Ordered nursing to not take any vitals from 10 pm to 6 am, no further lab draws. Continued [facility] stay due to: ambulation difficulties (very weak today) (Sherine Roland ., PA-C) Attending Attestation: Pt seen/examined, chart reviewed, care plan d/w PA Sherine Roland. I agree w/ the eisenberg components of her documentation. Pt w/o cp, dypsnea, HALL, abd pain. Eating fine. Tele with NSR, occasional ventricular bigeminy, PVCs; no sustained dysrhythmia. Patient has NOT been out of the room since hospital admission. I watched him walk for the first time in the hallway; very slow and weak appearing. VSS, afebrile gen - NAD neck - no JVD mouth - MMM heart - RRR, s1, s2, no murmur lungs - CTA b/l abd - soft, NT, BS+, obese ext - right femoral artery cath site w/o hematoma or active bleeding; pulses both feet 2+; minimal amount of ecchymoses right femoral site labs - Hb 12's Cr 1.3 lytes stable A/P: NSTEMI 2nd to RCA occlusion s/p [address] Mehta; asa, plavix, statin, BB, SERGIO; cardiac rehab referral as outpatient bradycardia with hypotension - suspect vagal event in setting of acute blood loss anemia and micturition - improved/resolved with IV fluid bolus/atropine yesterday minimal acute blood loss anemia 2nd to bleeding from fem cath site - CT w/o retroperitoneal bleeding - H/H stable since HTN - acceptable control acute kidney injury improved T2DM - uncontrolled - but improving deconditioning - encouraged to go for several walks tonight as tolerated; formal PT/OT evals in am hopefully d/c/ in AM if cleared by PT/OT family updated at bedside Lebron Abbott MD (Lebron Abbott MD)
[2017-04-22] MEDS ORDERED: NTRSLP4 SL (16:41)
[2017-04-22] MEDS: ATORVASTATIN 40 MG TAB PO SCH (19:50)
[2017-04-22] MEDS: INSULIN GLARGINE SOLOSTAR 100 UNITS/ML 3 ML PEN SC SCH (19:54)
[2017-04-23 06:30] VITALS: BP 136/70; PULSE 57; TEMP 36.9; O2SAT 95
[2017-04-23 08:00] VITALS: O2SAT 95
[2017-04-23] MEDS ORDERED: ATROPINE SULFATE 0.1 MG/ML 10 ML SYR IV ONE (08:20)
[2017-04-23] MEDS ORDERED: SODIUM CHLORIDE 0.9% 10ML FLUSH IV ONE (08:20)
[2017-04-23] MEDS: ASPIRIN 81 MG ECTAB PO SCH (08:37)
[2017-04-23] MEDS: ISOSORBIDE MONONITRATE 60 MG TABCR PO SCH (08:38)
[2017-04-23] MEDS: CLOPIDOGREL BISULFATE 75 MG TAB PO SCH (08:38)
[2017-04-23] MEDS: CARVEDILOL 12.5 MG TAB PO SCH (08:38)
[2017-04-23] MEDS: INSULIN ASPART 100 UNITS/ML 3 ML PEN SC SCH ×2 (08:42→12:19)
[2017-04-23] MEDS ORDERED: FUROSEMIDE 40 MG TAB PO SCH (09:00)
[2017-04-23] MEDS ORDERED: LISINOPRIL 40 MG TAB PO SCH (09:00)
[2017-04-23 11:33] VITALS: BP 112/63; PULSE 54; TEMP 36.5; O2SAT 98
[2017-04-23 12:00] VITALS: O2SAT 95
[2017-04-23 12:22] VITALS: BP 112/63; PULSE 54; TEMP 36.5; O2SAT 95
--- NOTE | 2017-04-23 12:27 | Discharge Summary ---
Discharge Summary Date of Service Apr 23, 2017. Discharge Summary Admission Date: Apr 20, 2017 at 00:42 Discharge Date: Apr 23, 2017 Discharge Disposition: Home Principal Diagnosis: NSTEMI Problems/Secondary Diagnoses: CAD s/p CABG and stents, HTN, HLD, DM II, asymptomatic cholelithiasis, pulmonary nodules Procedures: Cardiac cath findings: FINDINGS: Left main is normal. Left anterior descending is totally occluded at its ostium. The left circumflex totally occluded at its origin. A small ramus intermedius is arising from the trifurcation. The left main is patent. The right coronary artery is patent with an eccentric 90% stenosis of the proximal to mid right coronary artery on a turn proximal to a previously stented segment. The remainder of the right coronary artery, the PDA and the posterolateral branches are free of significant disease. Collateral filling of the circumflex is noted. Left ventricular end-diastolic pressure is normal. No significant aortic valve gradient is demonstrated. Final cineangiograms demonstrate no residual stenosis, no uncovered dissection with KATHERINE grade 3 flow in the right coronary artery. IMPRESSION: Successful percutaneous coronary intervention with drug-eluting stent x2 right coronary artery. RECOMMENDATION: For dual antiplatelet therapy per DAPT guidelines. ABDOMEN AND PELVIS CT WITHOUT CONTRAST CT DOSE: 780.53 mGy.cm HISTORY: Concern for acute complication status post right femoral catheterization right femoral catheterization; acute hemorrhage TECHNIQUE: Multiaxial CT images of the abdomen and pelvis were performed without contrast. A dose lowering technique was utilized adhering to the principles of ALARA. COMPARISON STUDY: None. FINDINGS: Subpleural reticular and groundglass opacities are noted at the level of the lung bases with mild bibasilar bronchial wall thickening and areas of mild mucous plugging of the bronchi. Nonspecific 4 mm nodule of the right lung base is noted on image 15 series 2. 6 mm nodule of the right lower lobe is seen on image 26 series 3. Imaged inferior cardiac chambers are moderately enlarged with coronary arterial disease. There is no pneumatosis or pneumoperitoneum identified. Evaluation of the solid abdominal organs is limited without the use of contrast. Within the limitations of the study, the liver, spleen, and adrenal glands are within normal limits. Moderate to severe generalized pancreatic atrophy with fatty replacement. Layering gallstones are seen within the gallbladder lumen with probable [place] The gallbladder fundus. No CT evidence of acute cholecystitis. Contrast is noted within the bilateral renal collecting systems. Low attenuating ovoid 2.7 cm lesion of the superior pole left kidney suggests renal cyst. There is mild prominence of the lateral interpolar left kidney without discrete lesion identified on this noncontrast study. Mild nonspecific bilateral perinephric stranding. Ureters appear unremarkable. Reticulation of the urinary bladder allen noted with prostamegaly. Bladder diverticula are seen measuring up to 2.4 x 2.2 cm. Small fat filled left inguinal hernia. No aortic aneurysm or pathologic adenopathy identified. Mildly enlarged right external iliac chain lymph node measures 9 mm and image 447 series 3, nonspecific. Stomach is distended. No bowel obstruction or focal bowel wall thickening. Moderate stool volume of the rectum. Mild colonic diverticulosis without CT evidence of acute diverticulitis. Normal appendix. There is mild stranding about the right inguinal tissues with skin defect noted on image 47 series 3. No large drainable fluid collections identified. No retroperitoneal hemorrhage. Bilateral gynecomastia. Degenerative changes about the pelvis, hips and spine. IMPRESSION: 1. Mild subcutaneous stranding about the right inguinal tissues adjacent to the femoral artery without focal fluid collection or retroperitoneal hemorrhage. 2. Bibasilar subsegmental atelectasis with interstitial scarring. Solid nodules of the right lung base measure up to 6 mm. 3. Cholelithiasis without CT evidence of acute cholecystitis. 4. Colonic diverticulosis without diverticulitis. 5. Prostamegaly with evidence of chronic bladder outlet obstruction. Consultations: Cardiology Medication Reconciliation New Medications: Clopidogrel Bisulfate (Clopidogrel) 75 Mg Tab 75 MG PO QAM for 30 Days, #30 TAB Nitroglycerin (Nitrostat) 0.4 Mg/1 Tab Subl 0.4 MG SL UD PRN for Chest Pain for 30 Days, #30 TABS Take 1 tablet under the tongue every 5 minutes as needed for chest pain, up to 3 doses. Continued Medications: Aspirin (Ecotrin Low Strength) 81 Mg Tab 81 MG PO DAILY Atorvastatin (Lipitor) 80 Mg Tab 80 MG PO HS, TAB Carvedilol (Coreg) 12.5 Mg Tab 12.5 MG PO BID, TAB Cholecalciferol (Vitamin D) 1,000 Unit Tab 3000 UNITS PO DAILY Furosemide (Lasix) 40 Mg Tab 40 MG PO DAILY, TAB Glipizide (Glipizide Er) 10 Mg Tab 10 MG PO BID Hydrocodone/Acetaminophen 5MG/325MG ([place] 5MG/325MG) Tab 1 TABLET PO Q4 PRN for Pain, #20 TAB Insulin Human NPH (Novolin N) 100 Units/Ml Susp 1 DOSE SC BID 30 UNITS IN AM 32 UNITS IN PM Insulin Human NPH (Novolin N) 100 Units/Ml Susp 30 UNITS SQ QAM Insulin Human NPH (Novolin N) 100 Units/Ml Susp 34 UNITS SQ QPM Isosorbide Mononitrate Ext Rel (Imdur Ext Rel) 60 Mg Ertab 60 MG PO DAILY, TAB Lisinopril (Zestril) 40 Mg Tab 40 MG PO DAILY, TAB Repaglinide (Prandin) 2 Mg Tab 2-4 MG PO WITH EVENING MEAL, TAB Discharge Exam The patient reports feeling well. He denies any chest pain or shortness of breath. He states he did well with physical therapy and is eager to be discharged. The patient denies fevers, chills, sweats, chest pain, palpitations , claudication, cough, wheezing, shortness of breath, nausea, vomiting, abdominal pain, dysuria, hematuria, urinary retention, paralysis, weakness, numbness and tingling. Constitutional: No fever, No chills, No sweats Eyes: No worsening of vision, No eye pain, No diplopia ENT: No hearing loss, No nasal symptoms, No trouble swallowing Respiratory: No cough, No wheezing, No shortness of breath Cardiovascular: No chest pain, No claudication, No palpitations Abdomen: No pain, No nausea, No vomiting Musculoskeletal: No joint pain, No muscle pain, No swelling Genitourinary - Male: No dysuria, No urinary retention, No hematuria Neurologic: No paralysis, No weakness, No numbness/tingling Integumentary: No rash, No itch, No color change General appearance: +Obese. Well-developed, well-nourished, no apparent distress Head: Normocephalic, atraumatic Eyes: Normal inspection, PERRL, EOMI ENT: Normal ENT inspection, hearing grossly normal, pharynx normal Neck: Supple, no JVD, trachea midline Respiratory/Chest: Lungs clear to auscultation, normal breath sounds, no respiratory distress Cardiovascular: Regular rate & rhythm, no gallop, no murmur Abdomen/GI: Normal bowel sounds, non-tender, soft Extremities/Musculoskeletal: Normal inspection, no calf tenderness, no pedal edema Neurological/Psych: Alert, normal mood/affect, oriented x 3 Skin: Normal color, warm/dry, no rash Hospital Course 76 y/o male with a history of CAD s/p CABG and stents, HTN, HLD, and DM II who presented with chest pain. NSTEMI--improving -Admit to telemetry. No acute events overnight. Pt in sinus sinus rhythm/ sinus bradycardia with HR 50s-60s -Trop peaked at 3.11 -Echo with LVEF 55-60%, mild LVH. No definite WMA. -Cardiac cath on 04/22, 2 stents placed in RCA. Continue DAPT -Continue ASA, Plavix, statin, beta noel, Imdur -Cardiology following, appreciate recs: Spoke with Dr. Sorenson, stable for discharge from cardiac standpoint Bleeding from cath site--resolved -Hgb has remained stable in 12s -CT abdomen/pelvis negative for fluid collection or retroperitoneal hemorrhage Near syncope--likely vasovagal. Pt w/acute blood loss and then had just gotten up to void, no reoccurrence Asymptomatic cholelithiasis -Cholelithiasis without evidence of acute cholecystitis noted on CT of abdomen/ pelvis RLL pulmonary nodules -4 and 6 mm nonspecific nodules noted in right base on abdomen/pelvis CT -Recommend outpatient chest CT for follow up CAD s/p CABG x 3 in 1991, stents x 5 in 2001; HTN; HLD--stable -Continue ASA 81 mg PO qd, Plavix 75 mg PO qd, Coreg 12.5 mg PO BID, Imdur 60 mg PO qd, Lipitor 80 mg PO qd -Lisinopril 40 mg PO qd held on admission due to REHAN, now resumed -D/C with nitro prn REHAN--resolved -Creatinine remains stable, at baseline -Resume Lasix 40 mg PO qd and lisinopril DM II--HgbA1c 7.0 here -Hold glipizide and Prandin, resume at discharge -Insulin sliding scale -Check BSGs q ac and qhs DVT prophylaxis -Hold chemical ppx for now due to bleed -JENIFER witt and SCDs Code Status -Level I, FULL RESUSCITATION STATUS Dispo -PT/OT recommend return home -F/u with PCP and cardiology Total Time Spent: Greater than 30 minutes This includes examination of the patient, discharge planning, medication reconciliation, and communication with other providers. Discharge Instructions Please refer to the electronic Patient Visit Report (Discharge Instructions) for additional information. Additional Copies To Navneet Baeza M.D. 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 Discussed with EMPERATRIZ Roland and agree with findings and plan as documented in the note. Any exceptions or clarifications are listed here: Pt feeling very well. No CP or SOB, no lightheadedness. He is ambulating without difficulty and feels ready for discharge. No events on tele other than PACs, had a brief dip to 38 beats per min in SB overnight. Denies cough or sputum production. Has no known h/o pulm nodules that he is aware of. Quit smoking in 1967 Vitals reviewed, tele reviewed NAD, AAOx3 RRR no mgr CTAB no wcr Abd soft NT ND +BS Ext no edema, right femoral cath site with small ecchymosis, no hematoma, no thrill or bulge 76 yo male with a h/o CAD, HTN, HLD, and DM II who presented with chest pain, found to have NSTEMI, now s/p 2 stents to RCA. Had post-cath vasovagal episode after some bleeding from cath site. Now much improved, hgb stable, no CP or arrhythmias. Stable for dc to home on DAPT, statin,beta noel f/u Cardiology and PCP Documented By: Supriya Moses
== END 2017-04-23 12:45 | disposition home or self-care (01) | DRG 247 ==
LOC: C.EDB 22:48 → C.2E 04-20 00:42 → EDBEDREQ 04-20 00:43 → ENRESERV 04-20 01:04
PROVIDERS: ADMIT Internal Medicine; ATTEND Family Medicine
PROC: 4A023N7 Measurement of Cardiac Sampling and Pressure, Left Heart, Percutaneous Approach (ICD-10-PCS; principal; 2017-04-21 07:09)
PROC: 027035Z Dilation of Coronary Artery, One Artery with Two Drug-eluting Intraluminal Devices, Percutaneous Approach (ICD-10-PCS; principal; 2017-04-21 07:09)
PROC: B211YZZ Fluoroscopy of Multiple Coronary Arteries using Other Contrast (ICD-10-PCS; principal; 2017-04-21 07:09)
DX: I21.4 Non-ST elevation (NSTEMI) myocardial infarction (principal); N17.9 Acute kidney failure, unspecified; I45.2 Bifascicular block; I97.610 Postprocedural hemorrhage of a circulatory system organ or structure following a cardiac catheterization; D62 Acute posthemorrhagic anemia; I25.10 Atherosclerotic heart disease of native coronary artery without angina pectoris; R55 Syncope and collapse; M62.81 Muscle weakness (generalized); I10 Essential (primary) hypertension; E78.5 Hyperlipidemia, unspecified; E11.9 Type 2 diabetes mellitus without complications; K80.20 Calculus of gallbladder without cholecystitis without obstruction; R91.8 Other nonspecific abnormal finding of lung field; Z95.1 Presence of aortocoronary bypass graft; Z95.5 Presence of coronary angioplasty implant and graft; Z87.891 Personal history of nicotine dependence; Z79.4 Long term (current) use of insulin; Z79.82 Long term (current) use of aspirin; Z79.899 Other long term (current) drug therapy; Z82.49 Family history of ischemic heart disease and other diseases of the circulatory system

== ENCOUNTER → 2017-06-30 | Outpatient (CLI) | payer OTHER ==
[~2017-06-30] MED LIST changes: +ASPI-428 PO; +GLIP-199 PO; -HYDR-5688 PO; +NTRSLP4 SL; +NVLNI SQ; +PLV75 PO; +REPA2TAB12 PO
--- NOTE | 2017-06-30 15:21 | DIAGNOSTIC IMAGING REPORT ---
KUB HISTORY: N32.3 Diverticulum of bladder COMPARISON: Abdomen and pelvis CT 04/21/2017. FINDINGS: The bowel gas pattern is unremarkable. There are no dilated loops of small bowel to suggest an obstruction. No renal calculi. No ureteral calculi. No pneumoperitoneum or pneumatosis. 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 Vascular calcifications are noted. Surgical clips within the left upper quadrant. Poststernotomy changes. Moderate well-formed stool within the majority of the colon. IMPRESSION: No renal or ureteral stones. Electronically signed by: Alfredo Vazquez M.D. 06/30/2017 3:20 PM Dictated Date/Time: 06/30/2017 3:19 PM
[2017-07-01 06:41] LABS: HEMOGLOBIN A1C 6.2 % (4.5-5.6)
== END | disposition home or self-care (01) ==
LOC: C.LAB 14:23
PROVIDERS: ATTEND Urology
DX: N32.3 Diverticulum of bladder (principal); N40.1 Benign prostatic hyperplasia with lower urinary tract symptoms; E11.65 Type 2 diabetes mellitus with hyperglycemia

== ENCOUNTER → 2017-09-09 | Outpatient (CLI) | payer OTHER ==
--- NOTE | 2017-09-09 13:37 | DIAGNOSTIC IMAGING REPORT ---
(CHEST) THORAX WITHOUT CT DOSE: 588.13 mGycm HISTORY: Lung nodule. Follow-up. TECHNIQUE: Multiaxial CT images of the chest were performed without contrast. A dose lowering technique was utilized adhering to the principles of ALARA. COMPARISON: Abdomen and pelvis CT 04/21/2017. FINDINGS: The central airways are patent. No pleural effusions. No pneumothorax. Calcified granuloma within the left lung base. Mild emphysema. Mild peripheral and basilar interstitial thickening. This is likely chronic. There are greater than 10 scattered subcentimeter bilateral pulmonary nodules. Dominant nodule within the left lung is seen within the lingula on image 169 and measures 5 mm. The dominant nodules within the right lung measure 5 mm and are seen within the right upper lobe on image 109 and the right middle lobe on image 209. There are poststernotomy changes. Cholelithiasis. Normal adrenal glands. Partially visualized left renal cyst. A 1.2 cm left thyroid nodule. The heart is normal in size. Normal caliber thoracic aorta. No significant mediastinal or hilar lymphadenopathy. IMPRESSION: 1. Multiple scattered indeterminate subcentimeter pulmonary nodules as described above. Dominant nodules measure up to 5 mm. Please refer to the chart below for recommended follow-up. 2. Mild emphysema. 3. Mild peripheral and basilar interstitial thickening. This suggest mild fibrotic change. 4. A 1.2 cm left thyroid nodule. 5. Cholelithiasis. Please refer to below summary of Fleischner criteria recommendations for follow-up of incidental CT nodules (Ronald Lazaro, Guidelines for management of small pulmonary nodules detected on CT scans: A statement from the Fleischner Society, Radiology 237: [phone].) SOLID NODULES Solitary nodule size: <6 mm * Low risk patients: no follow-up needed * high risk patients: optional CT at 12 months Solitary nodule size: 6-8 mm * Low risk patients: follow-up at 6-12 months, then consider further follow-up at 18-24 months * high risk patients: initial follow-up CT at 6-12 months and then at 18-24 months if no change Solitary nodule size: >8 mm * either low or high risk patients - consider follow-up CT at 3 months, and/or CT-PET, and/or biopsy Multiple nodules size: <6 mm * Low risk patients: no routine follow-up * high risk patients: optional CT at 12 months Multiple nodules size: 6-8 mm * Low risk patients: follow-up at 3-6 months, then consider further follow-up at 18-24 months * high risk patients: follow-up at 3-6 months, then at 18-24 months if no change Multiple nodules size: >8 mm * Low risk patients: follow-up at 3-6 months, then consider further follow-up at 18-24 months * high risk patients: follow-up at 3-6 months, then at 18-24 months if no change Note: newly detected indeterminate nodule in persons 35 years of age or older. * Low risk patients: minimal or absent history of smoking and/or other known risk factors * high risk patients: history of smoking or of other known risk factors (e.g. first degree relative with lung cancer, or exposure to asbestos, radon, uranium) * if a nodule up to 8 mm is partly solid or is ground glass further follow-up is required after 24 months to exclude possible slow growing adenocarcinoma ([place]IST[place]) SUBSOLID NODULES Solitary pure ground-glass nodule * nodule size <6 mm - no CT follow-up required * nodule size >=6 mm - follow-up CT at 6-12 months, then every 2 years until 5 years Solitary part-solid nodule * nodule size <6 mm - no CT follow-up required * nodule size >=6 mm - follow-up CT at 3-6 months. If unchanged, and solid component remains <6 mm, then annual follow-up for 5 years Multiple subsolid nodules * nodule size <6 mm - follow-up CT at 3-6 months, consider further follow-up at 2 and 4 years if stable * nodule size >=6 mm - follow-up CT at 3-6 months, subsequent management based on the most suspicious nodule(s) Electronically signed by: Alfredo Vazquez M.D. 09/09/2017 1:36 PM Dictated Date/Time: 09/09/2017 1:26 PM
== END | disposition home or self-care (01) ==
LOC: C.CTS 13:02
PROVIDERS: ATTEND Internal Medicine
DX: R91.8 Other nonspecific abnormal finding of lung field (principal); K80.20 Calculus of gallbladder without cholecystitis without obstruction

== ENCOUNTER 2022-10-29 04:55 | Inpatient (IN) ==
--- NOTE | 2022-09-24 08:52 | PAT Medication Instructions ---
Medication Instructions Date of Service September 24, 2022 Home Medications Medication Instructions Recorded BD Alcohol Swabs (alcohol swabs) 4 pad topical DAILY 90 days #400 ea 03/08/21 blood-glucose meter (True Metrix #1 ea 03/08/21 Glucose Meter) carvedilol 12.5 mg tablet 12.5 mg PO BID #180 tabs 11/23/21 Novolin N NPH U-100 Insulin 100 30 unit (0.3 mL) subcut BID 90 01/28/22 unit/mL subcutaneous susp (insulin days #60 mL NPH isoph U-100 human) blood glucose control, low (True #1 ea 01/28/22 Metrix Level 1 solution) TRUEplus Lancets 33 gauge (lancets) #400 ea 05/13/22 TRUEdraw Lancing Device (lancing #1 ea 05/14/22 device) True Metrix Glucose Test Strip #400 ea 06/18/22 (blood sugar diagnostic) insulin syringe,safetyneedle 0.5 #200 ea 07/31/22 mL 31 gauge x 15/64" (BD SafetyGlide Insulin Syringe) aspirin 81 mg tablet,delayed release 81 mg PO QAM nitroglycerin 0.4 mg sublingual tablet 0.4 mg sublingual UD PRN Chest Pain cholecalciferol (vitamin D3) 3,000 unit PO DAILY carvedilol 12.5 mg tablet 12.5 mg PO BID Novolin N NPH U-100 Insulin 100 unit/mL subcutaneous susp (insulin NPH isoph U- 100 human) 30 unit (0.3 mL) subcut BID atorvastatin 80 mg tablet 80 mg PO HS cholecalciferol (vitamin D3) 25 mcg (1,000 unit) tablet (Vitamin D3) 25 - 50 mcg PO UD clopidogrel 75 mg tablet 75 mg PO QAM finasteride 5 mg tablet 5 mg PO HS furosemide 40 mg tablet 40 mg PO QAM isosorbide mononitrate 120 mg tablet,extended release 24 hr 120 mg PO QAM lisinopril 40 mg tablet 40 mg PO QAM Continue as directed nitroglycerin 0.4 mg sublingual tablet 0.4 mg sublingual UD PRN Chest Pain (if needed) ASK your prescriber and surgeon aspirin 81 mg tablet,delayed release 81 mg PO QAM clopidogrel 75 mg tablet 75 mg PO QAM DO NOT take the morning of surgery cholecalciferol (vitamin D3) 3,000 unit PO DAILY cholecalciferol (vitamin D3) 25 mcg (1,000 unit) tablet (Vitamin D3) 25 - 50 mcg PO UD furosemide 40 mg tablet 40 mg PO QAM lisinopril 40 mg tablet 40 mg PO QAM Take morning of surgery With a small sip of water, OTHERWISE NOTHING TO EAT OR DRINK AFTER MIDNIGHT: carvedilol 12.5 mg tablet 12.5 mg PO BID isosorbide mononitrate 120 mg tablet,extended release 24 hr 120 mg PO QAM Take evening before surgery carvedilol 12.5 mg tablet 12.5 mg PO BID atorvastatin 80 mg tablet 80 mg PO HS cholecalciferol (vitamin D3) 25 mcg (1,000 unit) tablet (Vitamin D3) 25 - 50 mcg PO UD finasteride 5 mg tablet 5 mg PO HS Novolin N NPH U-100 Insulin 100 unit/mL subcutaneous susp (insulin NPH isoph U-100 human) 30 unit (0.3 mL) subcut BID Insulin Dependent Diabetic Patients * Test your blood sugar the morning of surgery * If Blood Sugar is GREATER THAN 150, take HALF of your regular dose of: Novolin N NPH U-100 Insulin 100 unit/mL subcutaneous susp (insulin NPH isoph U-100 human) (15 units) * If Blood Sugar is LESS THAN 150, DO NOT TAKE ANY: Novolin N NPH U-100 Insulin 100 unit/mL subcutaneous susp (insulin NPH isoph U-100 human) * Other Notes If you have any questions please call us at [phone] or [phone] or [phone] or [phone]
--- NOTE | 2022-09-30 11:48 | Anesthesiology Consultation ---
Date of Service September 30, 2022 Assessment & Plan (1) Encounter for pre-operative examination: - Check BSG AM DOS - COVID screening: Per assessment on 09/30: No known COVID-19 positive contacts or current COVID-19 related symptoms. No recent Covid positive test result. - Clopidogrel instructions: Per surgeon/prescriber - Patient acceptable risk for surgery pending surgeon-ordered cardiology preop evaluation ([facility] cardio, appt 10/02). Chart Review Chart Review: Patient seen in Pre Admission Testing Teaching & Discussion Pre-Anesthesia Teaching/Discussion Notes: Instructed NPO after midnight before surgery,except medications with 15 cc of water. Medication instructions provided according to the PAT guidelines. History Surgery Operation Date: 10/29/22 07:15 Proposed Procedures p L2-L3, L3-L4 and L4-L5 Posterior Lumbar Decompression - Vick Vanegas MD Height/Weight Height: 5 ft 11 in Weight: 98.3 kg Allergies Allergy/AdvReac Type Severity Reaction Status Date / Time No Known Drug Allergies Allergy Verified 09/30/22 10:59 Medications Home Medications Medication Instructions Recorded Confirmed Last Taken aspirin 81 mg tablet,delayed 81 mg PO QAM 10/09/18 09/23/22 Unknown release nitroglycerin 0.4 mg sublingual 0.4 mg sublingual UD PRN Chest Pain 02/17/19 09/23/22 Unknown tablet cholecalciferol (vitamin D3) 3,000 unit PO DAILY 12/18/20 09/23/22 Unknown BD Alcohol Swabs (alcohol swabs) 4 pad topical DAILY 90 days #400 ea 03/08/21 09/23/22 Unknown blood-glucose meter (True Metrix #1 ea 03/08/21 08/14/22 Unknown Glucose Meter) carvedilol 12.5 mg tablet 12.5 mg PO BID #180 tabs 11/23/21 09/23/22 Unknown Novolin N NPH U-100 Insulin 100 30 unit (0.3 mL) subcut BID 90 01/28/22 09/23/22 Unknown unit/mL subcutaneous susp (insulin days #60 mL NPH isoph U-100 human) blood glucose control, low (True #1 ea 01/28/22 08/14/22 Unknown Metrix Level 1 solution) TRUEplus Lancets 33 gauge (lancets) #400 ea 05/13/22 08/14/22 Unknown TRUEdraw Lancing Device (lancing #1 ea 05/14/22 08/14/22 Unknown device) True Metrix Glucose Test Strip #400 ea 06/18/22 08/14/22 Unknown (blood sugar diagnostic) insulin syringe,safetyneedle 0.5 #200 ea 07/31/22 08/14/22 Unknown mL 31 gauge x 15/64" (BD SafetyGlide Insulin Syringe) atorvastatin 80 mg tablet 80 mg PO HS 09/23/22 09/23/22 Unknown cholecalciferol (vitamin D3) 25 25 - 50 mcg PO UD 09/23/22 09/23/22 Unknown mcg (1,000 unit) tablet (Vitamin D3) finasteride 5 mg tablet 5 mg PO HS 09/23/22 09/23/22 Unknown furosemide 40 mg tablet 40 mg PO QAM 09/23/22 09/23/22 Unknown isosorbide mononitrate 120 mg 120 mg PO QAM 09/23/22 09/23/22 Unknown tablet,extended release 24 hr lisinopril 40 mg tablet 40 mg PO QAM 09/23/22 09/23/22 Unknown clopidogrel 75 mg tablet 75 mg PO QAM #90 tabs 09/30/22 Unknown Past Medical History Medical History Chronic kidney disease, stage III (moderate) Coronary artery disease CABG x3 (1996) Stents x3 (2016) Follows with Dr. 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 Exercise / Class Metabolic Activity III < 4 Walking/Shop/Light housework Past Family History Family History Father Hypertension Mother Diabetes Brother Diabetes Sister Diabetes Hypertension Brother Stroke Other No significant family history Denies family history of Ovarian cancer Prostate cancer Myocardial infarction Breast cancer Colorectal cancer Past Surgical History Surgical History History of PTCA Right posterior descending artery Hx of CABG CABG x3 (1996) Hx of cardiac catheterization 2017 - stents x3 (saphenous vein x1, left circumflex coronary artery x1, RCA x1) Hx of left inguinal hernia repair Hx of squamous cell carcinoma excision SCC excision Left ear, Right jaw (12/03/16): MAC at [facility] Past Anesthesia History No Hx of Anesthesia Complications and No Family Hx of Anesthesia Complications History of PONV No Hx of PONV and No Hx of Motion Sickness Social History Smoking Status: Former smoker Do You Dip or Chew Tobacco: No Smoking End Date: Quit 1968 Hx Alcohol Use: No Hx Substance Use: No substance use type: does not use Review of Systems Patient denies chest pain, shortness of breath, fever, chills, cough, wheezing, palpitations. Physical Exam Vital Signs VITALS BP 162/68 P 59 SP02 95%RA RESP 16 PHYSICAL Full cervical extension range of motion. Full TMJ range of motion. TMD 4 finger breaths Mallampati Score 3 Dentition: upper/lower dentures Lungs: clear throughout to auscultation Cardiac: regular rate and rhythm, no murmurs noted Spine: normal Carotid arteries: negative bruit Extremities: no LE edema Lab Results Anesthesia Preop Results Results Anesthesia Widget: WBC 8.02 K/ul (4.8-10.8) 09/30/22 Hgb 14.5 g/dl (14.0-18.0) 09/30/22 Hct 42.5 % (42.0-52.0) 09/30/22 Plt 205 K/uL (130-400) 09/30/22 Na 142 mmol/L (136-145) 09/30/22 K 5.0 mmol/L (3.5-5.1) 09/30/22 Cl 106 mmol/L (98-107) 09/30/22 CO2 31 mmol/L (21-32) 09/30/22 BUN 32 mg/dl (6-23) H 09/30/22 Creat 1.38 mg/dl (0.6-1.4) 09/30/22 Glucose Level 86 mg/dl (70-99(Fasting)) 09/30/22 PT 11.3 Seconds (9.0-12.0) 09/30/22 PTT 26.0 Seconds (21.0-31.0) 09/30/22 INR 1.0 (0.9-1.1) 09/30/22 HA1c 7.0 % (4.5-5.6) H 09/30/22 Blood Type O Positive 09/30/22 Antibody Screen NEGATIVE 09/30/22 Testing Electrocardiogram Date: 09/30/22 Sinus rhythm with frequent PACs at 56 bpm. Minimal voltage criteria for LVH, may be normal variant (R in aVL). RBBB. LAFB. *Bifascicular block* Compared to 04/21/17, PVCs not longer present, PACs are now present per field technical support consultant comparison* Chest X-Ray Date: 09/30/22 FINDINGS: Cardiac silhouette is enlarged. Prior median sternotomy with coronary arterial stenting. Chronic interstitial coarsening. No pneumothorax, pleural effusion, airspace consolidation or pulmonary edema. Degenerative changes of the shoulders and spine. IMPRESSION: No acute process. Echocardiogram Date: 04/20/17 EF 55 to 60%. No definite wall motion abnormalities. Mild concentric LVH. Mild LAD. Mild TR. Cardiac Catheterization Date: 04/21/17 left circumflex totally occluded at its origin. Left main is patent. RCA is patent with eccentric 90% stenosis of the proximal and mid RCA with a turn proximal To a previously stented segment. The remainder of the RCA, the PDA and the posterior lateral branches are free of significant disease. Collateral filling of the circumflex is noted. Successful percutaneous coronary intervention with drug-eluting stent x2 RCA.
[2022-10-29] MEDS ORDERED: ceFAZolin 2000MG 2,000 MG/15 ML SYR IV SCH (06:00)
[2022-10-29] MEDS ORDERED: LR 60ML/HR IV SCH (06:00)
[2022-10-29] MEDS ORDERED: LR 15ML/HR IV SCH (06:00)
[2022-10-29] MEDS ORDERED: ONDANSETRON INJ 2 MG/ML 2 ML VIAL ONE (06:52)
[2022-10-29] MEDS ORDERED: fentaNYL citrate PF 100 MCG/2 ML VIAL ONE ×2 (06:52→09:56)
[2022-10-29] MEDS ORDERED: LIDOCAINE 2% 2 ML VIAL/AMP(20MG/ML) INFIL ONE (06:52)
[2022-10-29] MEDS ORDERED: DEXAMETHASONE SOD INJ 4 MG/ML VIAL ONE (06:52)
[2022-10-29] MEDS ORDERED: PROPOFOL IV EMULSION 10 MG/ML 20 ML VIAL IV ONE (06:52)
[2022-10-29] MEDS ORDERED: KETAMINE 50 MG/5 ML SYRINGE ONE (06:52)
[2022-10-29] MEDS ORDERED: ROCURONIUM BROMIDE 10 MG/ML 5 ML VIAL IV ONE ×2 (06:56→08:18)
[2022-10-29] MEDS ORDERED: BUPIVACAINE 0.5 % 5 MG/1 ML MPF 30ML VIAL ONE (07:06)
[2022-10-29] MEDS ORDERED: THROMBIN 5000 UNITS KIT ONE (07:06)
[2022-10-29] MEDS ORDERED: VANCOMYCIN HCL 1000MG/20ML VIAL ONE (07:06)
[2022-10-29] MEDS ORDERED: GELATIN SPONGE SZ 100 ONE ×2 (07:06→07:30)
[2022-10-29] MEDS ORDERED: ONDANSETRON INJ 2 MG/ML 2 ML VIAL IV PRN ×2 (07:09→13:44)
[2022-10-29] MEDS ORDERED: ATROPINE SULFATE 0.1 MG/ML 10ML SYR IV PRN (07:09)
[2022-10-29] MEDS ORDERED: ePHEDrine sulfate 50 MG/ML AMP IV PRN (07:09)
--- NOTE | 2022-10-29 07:23 | History & Physical Bridge Note ---
Date of Service October 29, 2022 History & Physical Bridge Note I have examined the patient, reviewed the History & Physical and in the interval since the performance of the History & Physical I have noted the following changes of clinical significance: no changes noted
[2022-10-29] MEDS ORDERED: GLYCOPYRROLATE 0.2 MG/ML VIAL ONE (08:05)
[2022-10-29] MEDS ORDERED: ePHEDrine sulfate 50 MG/ML AMP ONE (08:34)
[2022-10-29] MEDS ORDERED: ceFAZolin 330 MG/ML 1 GM VIAL ONE (11:47)
[2022-10-29] MEDS ORDERED: SUGAMMADEX SODIUM 200 MG/2 ML VIAL IV ONE (13:19)
--- NOTE | 2022-10-29 13:43 | Post Operative Brief Note ---
PG Immediate Post Op with CF Date of Surgery October 29, 2022 Pre & Post Diagnosis Operation Date: 10/29/22 07:15 Pre-Op Diagnosis: Neurogenic Claudication, Lumbar Spinal Stenosis Post-Op Diagnosis: Neurogenic Claudication, Lumbar Spinal Stenosis I identified the patient and participated in the time-out.: Yes Procedure Operation Date: 10/29/22 07:15 Actual Procedures p L2-L3, L3-L4 and L4-L5 Lumbar Decompression(Not Applicable) - Vick Vanegas MD Surgeon Vick Vanegas MD [employer] none Estimated Blood Loss 200 Findings Consistent with Post-Op Diagnosis Specimens Specimen Description: None per surgeon Drains Bhandari Catheter (16 fr inserted without difficulty, draining clear yellow urine)
[2022-10-29] MEDS ORDERED: FAMOTIDINE 20 MG TAB PO PRN (13:44)
[2022-10-29] MEDS ORDERED: SOD PHOSPHATE/SOD BIPHOSPHATE ENEMA 132 ML BTL PR PRN (13:44)
[2022-10-29] MEDS ORDERED: LORazepam 2 MG/1 ML VIAL IV PRN (13:44)
[2022-10-29] MEDS ORDERED: hydrOXYzine HCl 25 MG TAB PO PRN (13:44)
[2022-10-29] MEDS ORDERED: MAGNESIUM HYDROXIDE SUSP 30 ML UDC PO PRN (13:44)
[2022-10-29] MEDS ORDERED: ACETAMINOPHEN 500 MG TAB PO PRN (13:44)
[2022-10-29] MEDS ORDERED: bisacodyL 10 MG SUPP PR PRN (13:44)
[2022-10-29] MEDS ORDERED: METOCLOPRAMIDE HCL INJ 5 MG/ML 2 ML VIAL IV PRN (13:44)
[2022-10-29] MEDS ORDERED: diphenhydrAMINE Capsule 25 MG CAP PO PRN (13:44)
[2022-10-29] MEDS ORDERED: DO NOT ADMINISTER PNEUMOCOCCAL VACCINE PRN (13:44)
[2022-10-29] MEDS ORDERED: ONDANSETRON 4 MG OD TAB PO PRN (13:44)
[2022-10-29] MEDS ORDERED: PROMETHAZINE HCL 12.5 MG in SODIUM CHLORIDE 0.9% 50 ML IV PRN (13:44)
[2022-10-29] MEDS ORDERED: LORazepam 0.5 MG TAB PO PRN (13:44)
[2022-10-29] MEDS ORDERED: NALOXONE HCL 0.4 MG/1 ML VIAL/CARP IV PRN (13:44)
[2022-10-29] MEDS ORDERED: DO NOT ADMINISTER FLU VACCINE PRN (13:44)
[2022-10-29] MEDS ORDERED: ACETAMINOPHEN 1,000 MG/100 ML VIAL IV PRN (13:44)
[2022-10-29] MEDS ORDERED: ALUMINUM/MAGNESIUM SUSP 30 ML UDC PO PRN (13:44)
[2022-10-29] MEDS ORDERED: oxyCODONE/ACETAMINOPHEN 5mg/325mg TAB PO PRN (13:44)
[2022-10-29] MEDS ORDERED: HYDROmorphone INJ 0.5 MG/0.5 ML SYR IV PRN (13:44)
[2022-10-29] MEDS: fentaNYL citrate PF 100 MCG/2 ML VIAL IV PRN ×5 (14:06→14:29)
--- NOTE | 2022-10-29 14:35 | Anesthesiology Progress Note ---
Date of Service October 29, 2022 Anesthesia Post Procedure Vital Signs Vital Signs: Temp Pulse Resp BP Pulse Ox O2 Del Method 10/29/22 05:36 98.6 F 57 L 18 197/92 H 96 Room Air Pain Intensity Lower Back: Pain Intensity: 4 Transfer of Care Handoff Completed per policy Notes Mental Status: alert / awake / arousable and participated in evaluation Patient Amnestic to Procedure: Yes Nausea / Vomiting: adequately controlled Pain: adequately controlled Airway Patency, RR, SpO2: stable & adequate BP & HR: stable & adequate Hydration State: stable & adequate Anesthetic Complications: no major complications apparent and Pt Satisfied with anesthetic care
--- NOTE | 2022-10-29 14:52 | Fluoroscopy Report ---
FL spine 1V any level CLINICAL HISTORY: L2-L3 L3-L4 L4-L5 DECOMPRESSION COMPARISON STUDY: Lumbar spine MRI August 16, 2022. FLUOROSCOPY TIME: 32 seconds. Ka, r: 26.06 mGy FLUOROSCOPIC IMAGES: 1 FINDINGS: Single lateral fluoroscopic image of the lumbar spine was obtained. Surgical retractors are noted. Multiple surgical instruments project over the operative bed. The most superior marker projec ts posterior to the posterior elements at the L2-L3 level. The inferior marker projects over the post erior elements at the L4-L5 level. IMPRESSION: Fluoroscopy provided during multilevel lumbar spine decompression. ACT 112: Negative or not required by law. Electronically signed by: Andreas Rodriguez M.D. 10/29/2022 2:51 PM
[2022-10-29] MEDS ORDERED: NITROGLYCERIN SL 0.4 MG/TAB TAB SL PRN (16:14)
[2022-10-29] MEDS: KETOROLAC TROMETHAMINE 15 MG/ML VIAL IV SCH ×2 (16:29→21:12)
[2022-10-29] MEDS: LACTATED RINGER'S 1,000 ML IV SCH (16:29)
--- NOTE | 2022-10-29 16:44 | Hospitalist Consultation ---
Date of Consultation October 29, 2022 Assessment & Plan (1) Spinal stenosis, lumbar region, with neurogenic claudication: s/p L2-L3, L3-L4 and L4-L5 Lumbar Decompression(Not Applicable) - Vick Vanegas MD EBL 200 cc Provided vanco per primary service, decadron 12mg Pain control/bowel regimen/DVT prophylaxis per primary service PT/OT consulted for AM *Of note patient without VICTOR MANUEL drain, messaged Dr Vanegas about possibly holding Plavix additional day. Most recent PCI 2017, nonurgent to resume. Will re-time Plavix to start for 10/31 and will need to clarify with Dr Vanegas in AM if he really does want this resumed tomorrow vs . Monitor labs in AM (2) Coronary artery disease: Follows [facility] - hx CAD/CABG, HTN, HLD, RBBB Hx CAD s/p CABG x 3 in 1991 (including PARISH to LAD, SVG to LCx, and SVG to RCA), with unstable angina/NSTEMI in 2001 revealed a 100% occluded mid LAD w/ patent PARISH to LAD graft, 95% mid SVG to LCx gradt stenosis and occluded SVG to RCA and underwent stentint to SVG-LCx and mid RCA, with a PTCA of the right PDA. April 2017 had additional PCI with 2 ALEXI to proximal to mid RCA in the setting of NSTEMI by Dr. Mehta . Plavix ok to hold for 7 days prior to surgery and resume once safe from bleeding standpoint per cardiology (ordered to start AM 10/30 --> changed to 10/31, clarify w/ primary tomorrow) No CP reported EKG w/ CP Continue other home meds: * ASA 81mg, Atorvastatin 80mg HS, carvedilol 12.5mg BID, lasix 40mg, lisinopril 40mg , ISMN 120mg daily, nitro SL prn (3) HTN (hypertension): BP 159/83 post-op, combination of pain contributing as well Continue home carvedilol, lasix, lisinopril, ISMN as above -if hypotensive this evening, could hold SERGIO for AM but BP 171/83 post-op and will continue Monitor (4) Hyperlipidemia: continue high intensity statin (5) Diabetes type 2, controlled: A1c 7 in September On NPH 30u BID at home Changed diet to diabetic diet (clear liquid ordered by primary) Glu 123 on POC post-op, was given decadron Hold home NPH while inpatient, BSG AC/HS, sliding scale ordered Glargine 5u BID to prevent hypoglycemia for now. can adjust pending repeat blood sugars if elevated (6) Chronic kidney disease, stage III (moderate): appears at baseline on pre-op labs continuing home meds, if hypotensive this evening would hold AM Lasix/Lisinopril until renal function assessed but BP on higher side and will continue for now Renal dose meds as able/avoid nephrotoxins * cautious use of NSAIDS --> Toradol BMP in AM (7) Benign localized hyperplasia of prostate with urinary obstruction: continue home finasteride monitor UOP after chino removed (8) Neurogenic claudication: as above, monitor symptoms post-op Plan Thank you for allowing hospitalist service to participate in the care of Mr Merritt. Will need to clarify timing to resume plavix in AM with primary service -- changed to 10/31 to prevent post-op bleeding/hematoma in meantime given no VICTOR MANUEL drain Please call with any questions/concerns Supervising Physician Co-Signing Physician Notes I personally saw and examined the patient. I verified all eisenberg points and agree with Carri Pickard PA-C with the following exceptions and/or additions: 82 year old male POD#0 Lumbar decompression performed by Dr Vanegas no current change in symptoms post operative. NV intact b/l ankles. No acute concerns or questions. Extensive history of CAD but currently stable. No guzman for him to go back on clopidogrel. O/E A&Ox3, HS RRR, no murmurs, Chest CTAB, Abdo SNT, ankle dorsi/plantarflex 5/5, sensation in toes intact A/P Clopidogrel start date changed to October 31. Otherwise plan as above. History of Present Illness Reason for Consultation: medical management Requesting Physician: Dr Pearson Attending Physician: Vick Vanegas MD History of Present Illness 82yo male with PMHx significant for CAD s/p CABG x 3 vessels 1991, NSTEMI 2001 s/p mid RCA stent and PTCA of PDA, Chronic RBBB, Hypertension, HLD, DMII (on insulin), BPH presented for lumbar decompression with Dr Vanegas. EBL 200cc. Patient evaluated in 282-1 post-op. Just got up from PACU, has not eaten yet but is hungry. /daughter/son at bedside. He is having some incisional pain but doing ok, numbness/tingling feeling better but nerve block still in place. Does NOT have VICTOR MANUEL drain. No fever/chills, headache, lightheadedness, dizziness, chest pain, shortness of breath, abdominal pain, nausea (but hungry reporting), or vomiting. Chino in place draining clear yellow urine. Discussed monitoring labs in AM, urine output once chino removed as well as th erapy evaluations in the morning. They confirm last dose was given 7 [address] ago[address] Discussed messaged Dr Vanegas about holding Plavix vs resuming tomorrow. Changed diet to diabetic, added sliding scale insulin and lower dose glargine 5u BID given taking NPH 30uBID at baseline but has not eaten yet today and do not want him to become hypoglycemic overnight given most recent BSG 123 post-op despite decadron with surgery. Questions/concerns addressed at this time. Allergies Allergy/AdvReac Type Severity Reaction Status Date / Time No Known Drug Allergies Allergy Verified 10/29/22 05:34 Home Medications Medication Instructions Recorded Confirmed Type aspirin 81 mg tablet,delayed 81 mg PO QAM 10/09/18 10/29/22 History release nitroglycerin 0.4 mg sublingual 0.4 mg sublingual UD PRN Chest Pain 02/17/19 10/29/22 History tablet BD Alcohol Swabs (alcohol swabs) 4 pad topical DAILY 90 days #400 ea 03/08/21 10/02/22 Rx blood-glucose meter (True Metrix #1 ea 03/08/21 10/02/22 Rx Glucose Meter) Novolin N NPH U-100 Insulin 100 30 unit (0.3 mL) subcut BID 90 01/28/22 10/29/22 Rx unit/mL subcutaneous susp (insulin days #60 mL NPH isoph U-100 human) blood glucose control, low (True #1 ea 01/28/22 10/02/22 Rx Metrix Level 1 solution) TRUEplus Lancets 33 gauge (lancets) #400 ea 05/13/22 10/02/22 Rx True Metrix Glucose Test Strip #400 ea 06/18/22 10/02/22 Rx (blood sugar diagnostic) insulin syringe,safetyneedle 0.5 #200 ea 07/31/22 10/02/22 Rx mL 31 gauge x 15/64" (BD SafetyGlide Insulin Syringe) atorvastatin 80 mg tablet 80 mg PO HS 09/23/22 10/29/22 History cholecalciferol (vitamin D3) 25 25 - 50 mcg PO UD 09/23/22 10/29/22 History mcg (1,000 unit) tablet (Vitamin D3) furosemide 40 mg tablet 40 mg PO QAM 09/23/22 10/29/22 History isosorbide mononitrate 120 mg 120 mg PO QAM 09/23/22 10/29/22 History tablet,extended release 24 hr lisinopril 40 mg tablet 40 mg PO QAM 09/23/22 10/29/22 History clopidogrel 75 mg tablet 75 mg PO QAM #90 tabs 09/30/22 10/29/22 Rx TRUEdraw Lancing Device (lancing #1 ea 10/08/22 Rx device) carvedilol 12.5 mg tablet 12.5 mg PO BID #180 tabs 10/08/22 10/29/22 Rx finasteride 5 mg tablet 5 mg PO HS #90 tabs 10/09/22 10/29/22 Rx Patient History Medical History Chronic kidney disease, stage III (moderate) Coronary artery disease CABG x3 (1996) Stents x3 (2016) Follows with Dr. 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 Surgical History History of PTCA Right posterior descending artery Hx of CABG CABG x3 (1996) Hx of cardiac catheterization 2017 - stents x3 (saphenous vein x1, left circumflex coronary artery x1, RCA x1) Hx of left inguinal hernia repair Hx of squamous cell carcinoma excision SCC excision Left ear, Right jaw (12/03/16): [place] [facility] History Father Hypertension Mother Diabetes Brother Diabetes Sister Diabetes Hypertension Brother Stroke Other No significant family history Denies family history of Ovarian cancer Prostate cancer Myocardial infarction Breast cancer Colorectal cancer Social History Smoking Status: Former smoker Tobacco Type: Cigarettes Age Started Using Tobacco: 16; Age Quit Using Tobacco: 28; packs per day: 3; Smoking End Date: Quit 1968; Second Hand Exposure: No; Do You Dip or Chew Tobacco: No; Tobacco Cessation Education Requested by Patient: No Hx Alcohol Use: No Hx Substance Use: No Preferred Language: Persian Communication Ability: Effective Visual Impairment: No Limitations Hearing Ability: Hard of Hearing Internet Systems Administrator Required: No Beliefs That Will Affect Care: None marital status: Current Living Situation: Spouse current occupational status: retired 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 [employer] Other Information That Helps Us Care for You: No Feels Safe at Home: Yes Safety Concerns: Feels Safe At This Time Childhood Exposure to Second-Hand Smoke: Yes Diet: diabetic caffeine: Yes Dental Care, Regularly: No Physical Activity Frequency: Does not Exercise Seatbelt Use: always Sunscreen Use: No Assistive Devices: Denture - Upper, Denture - Lower and Glasses Assistive Devices Comment: cane prn Review of Systems Review of Systems: All systems reviewed & are unremarkable except as noted in HPI & below Physical Exam Physical Exam: General: WD/WN obese male sitting up in bed, family at bedside, NAD, reporting he is hungry HEENT: head normocephalic, atraumatic, mmm, trachea midline Resp: CTA, respirations even/unlabored, no cough, no significant w/c/r, on room air 96% chest: prior sternotomy scar noted CV: regularly irregular, no significant m/r/g, no significant calf edema/tenderness, pulses palpable, cap refill wnl GI: +BS, soft/NT : chino draining clear yellow urine MSK/Neuro: slightly drowsy post op but no slurred speech, follows commands dressing to lumbar spine c/d/i, NO VICTOR MANUEL DRAIN bilateral LE with dorsiflexion/plantar flexion intact, slightly decreased strength on the LLE with dorsiflexion/plantar flexion compared to the right 4/5 vs 5/5. cap refill wnl sensation to pressure intact, slightly diminished to light touch AV impulse boots in place Psych: Alert, oriented to person/place/time Results & Data Results & Data Vital Signs (Past 12 Hours) Vital Signs Temp Pulse Pulse Resp BP Pulse Ox O2 Del Method 10/29/22 16:08 36.4 C L 72 18 174/73 H 96 Nasal Cannula 10/29/22 15:15 72 15 158/84 H 97 Nasal Cannula 10/29/22 15:00 66 14 160/66 H 100 Nasal Cannula 10/29/22 14:45 64 15 160/76 H 99 Nasal Cannula 10/29/22 14:30 36.3 C L 76 162/83 H 100 Nasal Cannula 10/29/22 14:20 75 16 166/81 H 100 Nasal Cannula 10/29/22 14:10 66 17 139/73 100 Nasal Cannula 10/29/22 14:00 70 17 140/76 96 Oxymask 10/29/22 13:50 71 14 152/71 H 96 Oxymask 10/29/22 15:30 62 13 159/74 H 96 Nasal Cannula 10/29/22 13:41 36.1 C L 63 15 120/66 98 Oxymask 10/29/22 05:36 37 C 57 L 18 197/92 H 96 Room Air O2 Flow Rate 10/29/22 16:08 10/29/22 15:15 2 10/29/22 15:00 2 10/29/22 14:45 2 10/29/22 14:30 2 10/29/22 14:20 2 10/29/22 14:10 2 10/29/22 14:00 4 10/29/22 13:50 6 10/29/22 15:30 2 10/29/22 13:41 8 10/29/22 05:36 Laboratory Results 10/29/22 10/29/22 Range/Units 13:50 06:03 POC Glucose 137 H 101 H (70-99) mg/dl Diagnostic Findings Spine X-Ray 10/29/22 07:15 FL spine 1V any level CLINICAL HISTORY: L2-L3 L3-L4 L4-L5 DECOMPRESSION COMPARISON STUDY: Lumbar spine MRI August 16, 2022. FLUOROSCOPY TIME: 32 seconds. Ka, r: 26.06 mGy FLUOROSCOPIC IMAGES: 1 FINDINGS: Single lateral fluoroscopic image of the lumbar spine was obtained. S urgical retractors are noted. Multiple surgical instruments project over the operative bed. The most superior marker projects posterior to the posterior elements at the L2-L3 level. The inferior marker projects over the posterior elements at the L4-L5 level. IMPRESSION: Fluoroscopy provided during multilevel lumbar spine decompression. ACT 112: Negative or not required by law. Electronically signed by: Andreas Rodriguez M.D. 10/29/2022 2:51 PM PG Care Time/CCT Total # of Minutes Spent Total Time Spent with Patient: Total time spent is greater than 50% in coordination of care (as documented) at patient's floor/unit and/or counseling patient: Coding Level of Care Code 87123 IN/OBS CONSULT LVL 3,45M Diagnoses Spinal stenosis, lumbar region, with neurogenic claudication M48.062 Coronary artery disease I25.10 HTN (hypertension) I10 Hyperlipidemia E78.5 Diabetes type 2, controlled E11.9 Chronic kidney disease, stage III (moderate) N18.3 Benign localized hyperplasia of prostate with urinary obstruction N40.1; N13.8 Neurogenic claudication R29.818
[2022-10-29] MEDS: carvediloL 12.5 MG TAB PO SCH (17:01)
[2022-10-29] MEDS ORDERED: DEXTROSE 50% 50 ML SYRINGE IV PRN (17:07)
[2022-10-29] MEDS ORDERED: CARBOHYDRATES FOR HYPOGLYCEMIA PO PRN (17:07)
[2022-10-29] MEDS ORDERED: GLUCOSE 40% GEL 15 GM TUBE PO PRN (17:07)
[2022-10-29] MEDS ORDERED: GLUCAGON FOR INJ 1 MG VIAL SQ PRN (17:07)
[2022-10-29] MEDS ORDERED: GLUCOSE 10 TAB/TUBE PO PRN (17:07)
[2022-10-29] MEDS ORDERED: INSULIN ASPART PER UNIT CHARGE ONE (17:57)
[2022-10-29] MEDS: INSULIN ASPART PER UNIT CHARGE SC SCH ×2 (17:58→21:12)
[2022-10-29] MEDS: ceFAZolin 1000MG 1,000 MG/7.5 ML SYR IV SCH (21:12)
[2022-10-29] MEDS: LANTUS PER UNIT CHARGE SQ SCH (21:12)
[2022-10-29] MEDS: FINASTERIDE 5 MG TAB PO SCH (21:13)
[2022-10-29] MEDS: ATORVASTATIN 40 MG TAB PO SCH (21:14)
[2022-10-29] MEDS: DOCUSATE SODIUM/SENNA 50/8.6MG TAB PO SCH (21:14)
[2022-10-30] MEDS: LACTATED RINGER'S 1,000 ML IV SCH ×2 (03:13→17:01)
[2022-10-30] MEDS: KETOROLAC TROMETHAMINE 15 MG/ML VIAL IV SCH ×2 (03:13→09:35)
[2022-10-30] MEDS: ceFAZolin 1000MG 1,000 MG/7.5 ML SYR IV SCH (03:17)
[2022-10-30] MEDS: POLYETHYLENE (MIRALAX) 17 GM PACK PO SCH ×4 (04:52→23:17)
[2022-10-30 06:12] LABS: Hematocrit (blood only) 34.9 % (42.0-52.0); Hemoglobin 11.6 g/dl (14.0-18.0); Mean Corpuscular Hemoglobin 30.5 pg (25.0-34.0); Mean Corpuscular Hgb Conc 33.2 g/dL (32.0-36.0); Mean Corpuscular Volume 91.8 fL (80.0-100.0); Mean Platelet Volume 11.1 fL (9.4-12.4); Platelet Count 167 K/uL (130-400); RDW Coefficient of Variation 13.7 % (11.5-14.5); RDW Standard Deviation 46.5 fL (36.4-46.3); White Blood Count 15.01 K/ul (4.8-10.8)
[2022-10-30 06:31] LABS: BUN Creatinine Ratio 25.8 (10-20); Calcium 8.5 mg/dl (8.6-10.3); Creatinine Clr Calc Pharmacy 41.7 ml/min; Est GFR (African American) 45.8 ml/min; Est GFR (Non-African American) 39.6 ml/min; Magnesium 1.9 mg/dl (1.7-2.4); Potassium 4.7 mmol/L (3.5-5.1)
[2022-10-30] MEDS: FUROSEMIDE 40 MG TAB PO SCH (08:23)
[2022-10-30] MEDS: ASPIRIN 81 MG ECTAB PO SCH (08:23)
[2022-10-30] MEDS: carvediloL 12.5 MG TAB PO SCH ×2 (08:23→17:46)
[2022-10-30] MEDS: ISOSORBIDE MONO EXTENDED REL 60 MG TABCR PO SCH (08:23)
[2022-10-30] MEDS: lisinopril 40 MG TAB PO SCH (08:24)
[2022-10-30] MEDS ORDERED: CLOPIDOGREL BISULFATE 75 MG TAB PO SCH (09:00)
[2022-10-30] MEDS: INSULIN ASPART PER UNIT CHARGE SC SCH ×4 (09:04→20:41)
[2022-10-30] MEDS: LANTUS PER UNIT CHARGE SQ SCH ×2 (09:04→20:40)
--- NOTE | 2022-10-30 09:31 | Orthopedic Progress Note ---
Date of Service October 30, 2022 Subjective . Patient postop day 1 from 3 level lumbar decompression L2-L5. He reports difficulty sleeping last night with some limited incisional pain, also the SCDs irritate his feet. Patient notes though that his lower extremities feel improved since the surgery. Dressing has been changed, some limited drainage present. Otherwise motor intact. Impression: Postop day 1 with improvement in lower extremity symptoms a surgery. Plan: Mobilize with physical therapy today and out of bed, discontinue Bhandari. Review of Systems All systems reviewed & are unremarkable except as noted in HPI & below. Physical Exam . Results & Data Results & Data Laboratory Results . Diagnostic Findings . PG Care Time/CCT Total # of Minutes Spent Total Time Spent with Patient: Total time spent is greater than 50% in coordination of care (as documented) at patient's floor/unit and/or counseling patient: Coding Level of Care Code 01125 Post Operative Follow-Up Diagnoses
[2022-10-30] MEDS: FINASTERIDE 5 MG TAB PO SCH (20:39)
[2022-10-30] MEDS: DOCUSATE SODIUM/SENNA 50/8.6MG TAB PO SCH (20:39)
[2022-10-30] MEDS: ATORVASTATIN 40 MG TAB PO SCH (20:39)
[2022-10-31] MEDS: POLYETHYLENE (MIRALAX) 17 GM PACK PO SCH ×5 (05:06→23:12)
[2022-10-31] MEDS: LACTATED RINGER'S 1,000 ML IV SCH (05:49)
--- NOTE | 2022-10-31 06:52 | Hospitalist Progress Note ---
Date of Service October 30, 2022 Assessment & Plan (1) Spinal stenosis, lumbar region, with neurogenic claudication: Plan: s/p L2-L3, L3-L4 and L4-L5 Lumbar Decompression(Not Applicable) - Vick Vanegas MD EBL 200 cc Provided vanco per primary service, decadron 12mg Pain control/bowel regimen/DVT prophylaxis per primary service PT/OT consulted for AM *Of note patient without VICTOR MANUEL drain, messaged Dr Vanegas about possibly holding Plavix additional day. Most recent PCI 2017, nonurgent to resume. Per Dr. Vanegas, can restart Plavix in afternoon for 10/31. Timed it for AM of 11/01. (2) Coronary artery disease: Plan: Follows [facility] - hx CAD/CABG, HTN, HLD, RBBB Hx CAD s/p CABG x 3 in 1991 (including PARISH to LAD, SVG to LCx, and SVG to RCA), with unstable angina/NSTEMI in 2001 revealed a 100% occluded mid LAD w/ patent PARISH to LAD graft, 95% mid SVG to LCx gradt stenosis and occluded SVG to RCA and underwent stentint to SVG-LCx and mid RCA, with a PTCA of the right PDA. April 2017 had additional PCI with 2 ALEXI to proximal to mid RCA in the setting of NSTEMI by Dr. Mehta . Plavix ok to hold for 7 days prior to surgery and resume once safe from bleeding standpoint per cardiology No CP reported EKG w/ CP Continue other home meds: * ASA 81mg, Atorvastatin 80mg HS, carvedilol 12.5mg BID, lasix 40mg, lisinopril 40mg , ISMN 120mg daily, nitro SL prn (3) HTN (hypertension): Plan: BP 159/83 post-op, combination of pain contributing as well Continue home carvedilol, lasix, lisinopril, ISMN as above -if hypotensive this evening, could hold SERGIO for AM but BP 171/83 post-op and will continue Monitor (4) Hyperlipidemia: Plan: continue high intensity statin (5) Diabetes type 2, controlled: Plan: A1c 7 in September On NPH 30u BID at home Changed diet to diabetic diet (clear liquid ordered by primary) Glu 123 on POC post-op, was given decadron Hold home NPH while inpatient, BSG AC/HS, sliding scale ordered Glargine 5u BID to prevent hypoglycemia for now. can adjust pending repeat blood sugars if elevated (6) Chronic kidney disease, stage III (moderate): Plan: appears at baseline on pre-op labs continuing home meds, if hypotensive this evening would hold AM Lasix/Lisinopril until renal function assessed but BP on higher side and will continue for now Renal dose meds as able/avoid nephrotoxins * cautious use of NSAIDS --> Toradol (7) Benign localized hyperplasia of prostate with urinary obstruction: Plan: continue home finasteride monitor UOP after chino removed. Chino ordered to be removed on 10/30 (8) Neurogenic claudication: Plan: as above, monitor symptoms post-op Plan PT/OT cleared patient for home. Patient does not want home health, however is concerned about taking patient home. Admission and Anticipated Discharge Date Admission Date: October 29, 2022 Subjective Patient reports no new symptoms. Review of Systems Review of Systems: All systems reviewed & are unremarkable except as noted in HPI & below Physical Exam Physical Exam: General: WD/WN obese male HEENT: head normocephalic, atraumatic, mmm, trachea midline Resp: CTA CV: regular rate GI: +BS, soft/NT Psych: Alert, oriented to person/place/time Results & Data Results & Data Vital Signs (Past 12 Hours) Vital Signs Temp Pulse Pulse Resp BP BP Pulse Ox 10/31/22 03:00 36.8 C 58 L 18 174/96 H 96 10/30/22 21:57 79 10/30/22 22:56 36.9 C 78 18 174/73 H 95 O2 Del Method 10/31/22 03:00 Room Air 10/30/22 21:57 10/30/22 22:56 Room Air PG Care Time/CCT Total # of Minutes Spent Total Time Spent with Patient: Total time spent is greater than 50% in coordination of care (as documented) at patient's floor/unit and/or counseling patient: Coding Level of Care Code 90265 SUB INP/OBS CARE 2/35MIN Diagnoses Spinal stenosis, lumbar region, with neurogenic claudication M48.062 Coronary artery disease I25.10 HTN (hypertension) I10 Hyperlipidemia E78.5 Diabetes type 2, controlled E11.9 Chronic kidney disease, stage III (moderate) N18.3 Benign localized hyperplasia of prostate with urinary obstruction N40.1; N13.8 Neurogenic claudication R29.818
--- NOTE | 2022-10-31 08:44 | Hospitalist Progress Note ---
Date of Service October 31, 2022 Assessment & Plan (1) Spinal stenosis, lumbar region, with neurogenic claudication: Plan: s/p L2-L3, L3-L4 and L4-L5 Lumbar Decompression(Not Applicable) - Vick Vanegas MD EBL 200 cc Provided vanco per primary service, decadron 12mg Pain control/bowel regimen/DVT prophylaxis per primary service PT/OT consulted for AM *Of note patient without VICTOR MANUEL drain, messaged Dr Vanegas about possibly holding Plavix additional day. Most recent PCI 2017, nonurgent to resume. Per Dr. Vanegas, can restart Plavix in afternoon for 10/31. Timed it for AM of 11/01. (2) Coronary artery disease: Plan: Follows [facility] - hx CAD/CABG, HTN, HLD, RBBB Hx CAD s/p CABG x 3 in 1991 (including PARISH to LAD, SVG to LCx, and SVG to RCA), with unstable angina/NSTEMI in 2001 revealed a 100% occluded mid LAD w/ patent PARISH to LAD graft, 95% mid SVG to LCx gradt stenosis and occluded SVG to RCA and underwent stenting to SVG-LCx and mid RCA, with a PTCA of the right PDA. April 2017 had additional PCI with 2 ALEXI to proximal to mid RCA in the setting of NSTEMI by Dr. Mehta . Plavix ok to hold for 7 days prior to surgery and resume once safe from bleeding standpoint per cardiology No CP reported EKG w/ CP Continue other home meds: * ASA 81mg, Atorvastatin 80mg HS, carvedilol 12.5mg BID, lasix 40mg, lisinopril 40mg , ISMN 120mg daily, nitro SL prn (3) HTN (hypertension): Plan: BP 159/83 post-op, combination of pain contributing as well Continue home carvedilol, lasix, lisinopril, ISMN as above -if hypotensive this evening, could hold SERGIO for AM but BP 171/83 post-op and will continue Monitor (4) Hyperlipidemia: Plan: continue high intensity statin (5) Diabetes type 2, controlled: Plan: A1c 7 in September On NPH 30u BID at home Changed diet to diabetic diet (clear liquid ordered by primary) Glu 123 on POC post-op, was given decadron Hold home NPH while inpatient, BSG AC/HS, sliding scale ordered Glargine 5u BID to prevent hypoglycemia for now. can adjust pending repeat blood sugars if elevated (6) Chronic kidney disease, stage III (moderate): Plan: appears at baseline on pre-op labs continuing home meds, if hypotensive this evening would hold AM Lasix/Lisinopril until renal function assessed but BP on higher side and will continue for now Renal dose meds as able/avoid nephrotoxins * cautious use of NSAIDS --> Toradol (7) Benign localized hyperplasia of prostate with urinary obstruction: Plan: continue home finasteride monitor UOP after chino removed. Chino ordered to be removed on 10/30 (8) Neurogenic claudication: Plan: as above, monitor symptoms post-op Plan PT/OT cleared patient for home. Patient does not want home health, however is concerned about taking patient home. Admission and Anticipated Discharge Date Admission Date: October 29, 2022 Subjective Patient reports no new symptoms, reportedly for discharge 11/01 per surgery medically stable Physical Exam Physical Exam: cardiac is regular lungs are clear LE sensation and strength are intact Results & Data Results & Data Vital Signs (Past 12 Hours) Vital Signs Temp Pulse Pulse Resp BP BP Pulse Ox 10/31/22 08:21 97.9 F 76 16 159/95 H 94 10/31/22 03:00 98.2 F 58 L 18 174/96 H 96 10/30/22 21:57 79 10/30/22 22:56 98.4 F 78 18 174/73 H 95 O2 Del Method 10/31/22 08:21 Room Air 10/31/22 03:00 Room Air 10/30/22 21:57 10/30/22 22:56 Room Air PG Care Time/CCT Total # of Minutes Spent Total Time Spent with Patient: Total time spent is greater than 50% in coordination of care (as documented) at patient's floor/unit and/or counseling patient: Coding Level of Care Code 78641 SUB INP/OBS CARE 2/35MIN Diagnoses Spinal stenosis, lumbar region, with neurogenic claudication M48.062 Coronary artery disease I25.10 HTN (hypertension) I10 Hyperlipidemia E78.5 Diabetes type 2, controlled E11.9 Chronic kidney disease, stage III (moderate) N18.3 Benign localized hyperplasia of prostate with urinary obstruction N40.1; N13.8 Neurogenic claudication R29.818
[2022-10-31] MEDS ORDERED: CLOPIDOGREL BISULFATE 75 MG TAB PO SCH (09:00)
[2022-10-31] MEDS: lisinopril 40 MG TAB PO SCH (09:20)
[2022-10-31] MEDS: FUROSEMIDE 40 MG TAB PO SCH (09:20)
[2022-10-31] MEDS: ASPIRIN 81 MG ECTAB PO SCH (09:20)
[2022-10-31] MEDS: carvediloL 12.5 MG TAB PO SCH ×2 (09:20→17:59)
[2022-10-31] MEDS: ISOSORBIDE MONO EXTENDED REL 60 MG TABCR PO SCH (09:20)
--- NOTE | 2022-10-31 09:37 | Orthopedic Progress Note ---
Date of Service October 31, 2022 Subjective . Patient notes improved lower extremity symptomatology, has been up ambulating, no bowel movement as of yet. Limited incisional pain, patient has had some continued serous type drainage from the operative site. Incision was reinforced, serosanguinous drainage Impression: 2 days status post multilevel lumbar decompression with improvement of lower extremity symptoms, some continued serosanguineous drainage Plan: Would recommend holding on Plavix until late tomorrow or Friday until drainage starts to decrease. Patient also notes that it would be difficult to return to home, so rehab placement should be emphasized for mobility. Review of Systems All systems reviewed & are unremarkable except as noted in HPI & below. Physical Exam . Results & Data Results & Data Laboratory Results . Diagnostic Findings . PG Care Time/CCT Total # of Minutes Spent Total Time Spent with Patient: Total time spent is greater than 50% in coordination of care (as documented) at patient's floor/unit and/or counseling patient: Coding Level of Care Code 23712 Post Operative Follow-Up Diagnoses
[2022-10-31] MEDS: INSULIN ASPART PER UNIT CHARGE SC SCH ×4 (09:46→20:52)
[2022-10-31] MEDS: LANTUS PER UNIT CHARGE SQ SCH ×2 (09:47→20:52)
[2022-10-31] MEDS ORDERED: bisacodyL 10 MG SUPP PR STA (09:53)
[2022-10-31] MEDS: DOCUSATE SODIUM/SENNA 50/8.6MG TAB PO SCH (20:48)
[2022-10-31] MEDS: FINASTERIDE 5 MG TAB PO SCH (20:53)
[2022-10-31] MEDS: ATORVASTATIN 40 MG TAB PO SCH (20:53)
[2022-11-01] MEDS: carvediloL 12.5 MG TAB PO SCH (07:58)
[2022-11-01] MEDS: lisinopril 40 MG TAB PO SCH (07:58)
[2022-11-01] MEDS: FUROSEMIDE 40 MG TAB PO SCH (07:58)
[2022-11-01] MEDS: ASPIRIN 81 MG ECTAB PO SCH (07:58)
[2022-11-01] MEDS: ISOSORBIDE MONO EXTENDED REL 60 MG TABCR PO SCH (07:58)
[2022-11-01] MEDS ORDERED: CLOPIDOGREL BISULFATE 75 MG TAB PO SCH (09:00)
[2022-11-01] MEDS: INSULIN ASPART PER UNIT CHARGE SC SCH ×2 (09:13→13:01)
[2022-11-01] MEDS: LANTUS PER UNIT CHARGE SQ SCH (09:14)
--- NOTE | 2022-11-01 12:40 | Orthopedic Progress Note ---
Date of Service November 01, 2022 Subjective . Patient seen and examined, feels notably improved relative to the axial symptomatology, has had a bowel movement has been up ambulating. Incision site with minimal drainage present, motor intact Plan: Discharge to home today if visiting nurse can be arranged with follow-up in 2 weeks. Review of Systems All systems reviewed & are unremarkable except as noted in HPI & below. Physical Exam . Results & Data Results & Data Laboratory Results . Diagnostic Findings . PG Care Time/CCT Total # of Minutes Spent Total Time Spent with Patient: Total time spent is greater than 50% in coordination of care (as documented) at patient's floor/unit and/or counseling patient: Coding Level of Care Code 73393 Post Operative Follow-Up Diagnoses
--- NOTE | 2022-11-01 12:53 | Discharge Summary ---
Date of Service November 01, 2022 Admission HPI (Per Admitting) Lumbar stenosis with neurogenic claudication. Principal Diagnosis Same as "Discharge Diagnosis" noted below under Discharge Instructions. Discharge Exam . Discharge Data Consultations 10/29/22 13:49 Consult Hospitalist Routine Procedures Performed Operation Date: 10/29/22 07:15 Actual Procedures p L2-L3, L3-L4 and L4-L5 Lumbar Decompression(Not Applicable) - Vick Vanegas MD Ordered Studies 10/29/22 07:15 FL spine 1V any level Routine 10/29/22 07:27 sono, invasive monitoring [US point of care ultrasound] Urgent Hospital Course (1) Spinal stenosis, lumbar region, with neurogenic claudication: (2) Bilateral leg weakness: PG Care Time/CCT Total # of Minutes Spent Total Time Spent with Patient: Total time spent is greater than 50% in coordination of care (as documented) at patient's floor/unit and/or counseling patient: Discharge Plan Discharge Items Patient Disposition: Home - Home Health Services Reason For Visit: Neurogenic Claudication, Spinal Stenosis, Lumbar Discharge Diagnosis: Neurogenic Claudication, Spinal Stenosis, Lumbar Activity: Per Instructions section Lifting: Gradually increase as tolerated and Wait until after follow-up appointment Bathing: No limitations Exercise/Sports: As tolerated Driving/Machine Use: Resume 3 days after discharge Weightbearing: Full weightbearing Non-emergency contact: Primary Care Provider Call non-emergency contact if: your pain is unusual for you Follow-up/Referrals: Navneet Baeza MD [Primary Care Provider] - Diet: Regular Addtl Attending Provider Instructions: May shower, no heavy bending lifting twisting Pending Studies at Discharge: No Stand-Alone [facility], Smoking Cessation Medications and DC Order Prescriptions: New sennosides-docusate sodium [Senokot-S] 8.6-50 mg Tablet 2 tab PO HS Qty: 60 0RF Continued aspirin 81 mg tablet,delayed release (DR/EC) 81 mg PO QAM nitroglycerin 0.4 mg tablet, sublingual 0.4 mg SL UD PRN (Reason: Chest Pain) Patient Comments: 0.4 mg SL VERY 5 MINUTES FOR UP TO 3 DOSES PRN FOR CHEST PAIN. CALL 911 IF PAIN PERSISTS; Rx Instructions: 0.4 mg SL EVERY 5 MINUTES FOR UP TO 3 DOSES PRN FOR CHEST PAIN. CALL 911 IF PAIN PERSISTS; alcohol swabs [BD Alcohol Swabs] Pads, Medicated 4 pad topical DAILY 90 Days Qty: 400 3RF (DME) blood-glucose meter [True Metrix Glucose Meter] [facility] [place] See Rx Instructions .Route Qty: 1 0RF Rx Instructions: test 4 times daily (DME) True Metrix Level 1 Solution See Rx Instructions .Route Qty: 1 0RF Rx Instructions: As directed Novolin N NPH U-100 Insulin 100 unit/mL suspension 30 unit SQ BID 90 Days Qty: 60 2RF (DME) lancets [TRUEplus Lancets] 33 gauge [facility] [place] See Rx Instructions .Route Qty: 400 3RF Rx Instructions: test 4 times daily (DME) True Metrix Glucose Test Strip Strip See Rx Instructions .Route Qty: 400 3RF Rx Instructions: test 4 times daily (DME) BD SafetyGlide Insulin Syringe 0.5 mL 31 gauge x 15/64" syringe See Dose Instructions .ROUTE .MEDSUPPLY Qty: 200 3RF Rx Instructions: Inject insuling twice a day clopidogrel 75 mg tablet 75 mg PO QAM Qty: 90 3RF (DME) lancing device [TRUEdraw Lancing Device] [facility] [place] See Rx Instructions .Route Qty: 1 0RF Rx Instructions: As directed carvedilol 12.5 mg tablet 12.5 mg PO BID Qty: 180 3RF finasteride 5 mg tablet 5 mg PO HS Qty: 90 3RF furosemide 40 mg tablet 40 mg PO QAM atorvastatin 80 mg tablet 80 mg PO HS isosorbide mononitrate 120 mg tablet extended release 24 hr 120 mg PO QAM lisinopril 40 mg tablet 40 mg PO QAM cholecalciferol (vitamin D3) [Vitamin D3] 25 mcg (1,000 unit) Tablet 25 - 50 mcg PO UD Rx Instructions: 1 tablet QAM and 2 tablets QPM Discharge Orders: Discharge Order (Routine); Ordered 11/01/22 Ordered By: Vick Vanegas Admission Data Admit Date/Time: 10/29/22 13:44 Attending Provider: Vick Vanegas Admit Provider: Vick Vanegas Primary Care Provider: Navneet Baeza Other Providers: Дмитрий Jain ; Carri Pickard ; Lebron Abbott ; Hi Mccarty ; Nilo Cheema ; Rudy Kim ; Supriya Moses ; Oriana Asher ; [place] ; Kirsten Dominguez ; Isidro Joseph ; Jessica Orozco ; Henri Cortes ; Nav Aleg[place] ; Carri Mock ; Ladan Gonzalez ; Navneet Pineda ; Lebron Gastelum ; Alfredo Cortes ; Sarai Snider ; Danielito Stephenson ; Jailene Pierre ; Celso Walter ; Neal Reeves ; Tami Garsia ; Hussein Mccrary ; Lizbeth Haque ; Layla Galindo ; Hi Monae ; Guille Hurst ; [facility] ; [facility]
[2022-11-01] MEDS: POLYETHYLENE (MIRALAX) 17 GM PACK PO SCH (13:01)
--- NOTE | 2022-11-01 13:35 | Hospitalist Progress Note ---
Date of Service November 01, 2022 Assessment & Plan (1) Spinal stenosis, lumbar region, with neurogenic claudication: Plan: s/p L2-L3, L3-L4 and L4-L5 Lumbar Decompression(Not Applicable) - Vick Vanegas MD EBL 200 cc Provided vanco per primary service, decadron 12mg Pain control/bowel regimen/DVT prophylaxis per primary service PT/OT consulted for AM *Of note patient without VICTOR MANUEL drain, messaged Dr Vanegas about possibly holding Plavix additional day. Most recent PCI 2017, nonurgent to resume. Per Dr. Vanegas, can restart Plavix (2) Coronary artery disease: Plan: Follows [facility] - hx CAD/CABG, HTN, HLD, RBBB Hx CAD s/p CABG x 3 in 1991 (including PARISH to LAD, SVG to LCx, and SVG to RCA), with unstable angina/NSTEMI in 2001 revealed a 100% occluded mid LAD w/ patent PARISH to LAD graft, 95% mid SVG to LCx gradt stenosis and occluded SVG to RCA and underwent stenting to SVG-LCx and mid RCA, with a PTCA of the right PDA. April 2017 had additional PCI with 2 ALEXI to proximal to mid RCA in the setting of NSTEMI by Dr. Mehta . Plavix ok to hold for 7 days prior to surgery and resume once safe from bleeding standpoint per cardiology No CP reported EKG w/ CP Continue other home meds: * ASA 81mg, Atorvastatin 80mg HS, carvedilol 12.5mg BID, lasix 40mg, lisinopril 40mg , ISMN 120mg daily, nitro SL prn (3) HTN (hypertension): Plan: BP 159/83 post-op, combination of pain contributing as well Continue home carvedilol, lasix, lisinopril, ISMN as above -if hypotensive this evening, could hold SERGIO for AM but BP 171/83 post-op and will continue Monitor (4) Hyperlipidemia: Plan: continue high intensity statin (5) Diabetes type 2, controlled: Plan: A1c 7 in September On NPH 30u BID at home Patient will return to home diabetic management with instructions to call if blood glucoses are routinely over 200 (6) Chronic kidney disease, stage III (moderate): Plan: appears at baseline on pre-op labs (7) Benign localized hyperplasia of prostate with urinary obstruction: Plan: continue home finasteride (8) Neurogenic claudication: Plan PT/OT cleared patient for home. Patient does not want home health, however is concerned about taking patient home. Admission and Anticipated Discharge Date Admission Date: October 29, 2022 Subjective Saw patient and family at bedside all questions answered complete med reconciliation on discharge form Physical Exam Physical Exam: cardiac is regular lungs are clear LE sensation and strength are intact Results & Data Results & Data Vital Signs (Past 12 Hours) Vital Signs Temp Pulse Pulse Pulse Resp BP BP 11/01/22 13:19 97.5 F L 73 73 16 150/57 H 190/76 H 11/01/22 11:36 97.5 F L 73 16 150/57 H 11/01/22 08:37 67 11/01/22 08:37 11/01/22 07:56 97.5 F L 68 16 189/94 H 11/01/22 03:53 97.9 F 73 20 194/70 H 190/76 H Pulse Ox O2 Del Method 11/01/22 13:19 96 11/01/22 11:36 96 Room Air 11/01/22 08:37 11/01/22 08:37 Room Air 11/01/22 07:56 97 Room Air 11/01/22 03:53 95 Room Air PG Care Time/CCT Total # of Minutes Spent Total Time Spent with Patient: Total time spent is greater than 50% in coordination of care (as documented) at patient's floor/unit and/or counseling patient: Coding Level of Care Code 35292 SUB INP/OBS CARE 2/35MIN Diagnoses Spinal stenosis, lumbar region, with neurogenic claudication M48.062 Coronary artery disease I25.10 HTN (hypertension) I10 Hyperlipidemia E78.5 Diabetes type 2, controlled E11.9 Chronic kidney disease, stage III (moderate) N18.3 Benign localized hyperplasia of prostate with urinary obstruction N40.1; N13.8 Neurogenic claudication R29.818
--- NOTE | 2022-11-01 16:28 | Operative Report ---
PG Post Operative Report Pre & Post Diagnosis Operation Date: 10/29/22 07:15 Pre-Op Diagnosis: Neurogenic Claudication, Lumbar Spinal Stenosis Post-Op Diagnosis: Neurogenic Claudication, Lumbar Spinal Stenosis I identified the patient and participated in the time-out.: Yes Procedure Operation Date: 10/29/22 07:15 Actual Procedures p L2-L3, L3-L4 and L4-L5 Lumbar Decompression(Not Applicable) - Vick Vanegas MD Surgeon Vick Vanegas MD Dynamometer Tester Engine none Estimated Blood Loss 200 Findings Consistent with Post-Op Diagnosis Specimens None Description of Procedure Patient was taken to the operating room where adequate anesthesia was applied, he was then repositioned prone on the Reese frame and carefully checked for positioning. After doing so the lumbar region underwent a thorough preprepped followed by bring in fluoroscopy where I marked for the approximate location of the incision to address the L2-L5 interspace regions. Prep and drape was performed, midline incision was then made and carried down through the subcutaneous tissues. Hemostasis was applied followed by then moving through the remaining soft tissues through the fascial layer and then exposure at the L2-3, L3-4 and L4-5 interspace regions out to the facets. Once this process was completed and the soft tissues around these interspaces were removed, retractors were then set for starting at the L4-5 level after confirmation using fluoroscopy for the 3 levels that we were going to address surgically. I then remove the inferior aspect of the spinous process of L4 down to the interspace region. I used a combination of curettes under the microscope for visualization, 2 thin some of the overlying ligamentum and tissue and around the facets and the inferior lamina of L5 and the superior lamina of L4. After doing so I brought in the high-speed bur and utilized this to continue with the decompression with inferior laminotomy across the interspace bilaterally to the facets and then moved down to the medial aspect of both facets and across the superior laminar edge of L5. Additional thinning of the thickened ligamentum flavum was performed because able to locate the dura amongst the ligamentum flavum and bony surfaces. Using a combination of curettes and Kerrison punches I then widen the decompression removing the remaining ligamentum flavum, and the superior laminar edge of L5, medial facets down to the lateral recess region, and then along the inferior laminar edge of L4 bilaterally to complete the decompression. Inspection revealed adequate decompression of this region both the lateral recess and central areas and outs of the foraminal regions. Thrombin-soaked Gelfoam was applied, and then I moved the retractors up to the L3-4 interspace. In a similar fashion and inferior aspect of the spinous process of L3 was then rongeured away, once again exposing the interlaminar region between L3 and L4. The thickened ligamentum flavum was thinned, along with using high-speed bur to perform the bilateral hemilaminotomies and partial medial facetectomies. The central portion of the remaining ligamentum flavum was located along with then using a combination of Kerrison punch and curettes to thin and then remove the remaining ligamentum flavum going across the superior lamina edge of L4, inferior laminar edge of L3 along the medial facets on both sides completing a decompression. Once this was completed inspection revealed adequate decompression, thrombin-soaked Gelfoam was placed. The retractor was then moved to the L2-3 level where similar procedure was performed with once again removing the overlying thickened ligamentum flavum concerning this at first using high-speed bur to complete the bilateral hemilaminotomies partial medial facetectomies, foraminotomies along with completing removing the thickened ligamentum flavum and decompressing the canal in this region along the lateral recess region decompressing the exiting nerve roots at all these levels for the L2, L3, L4 and L5 nerve roots. Thrombin-soaked Gelfoam was placed once again, evaluation did not reveal any evidence of any CSF leakage, hemostasis had been maintained throughout the procedure, I then irrigated the surgical site thoroughly followed placement of antibiotic vancomycin powder. First layer was then closed reattaching the supraspinous ligament were available followed by more vancomycin powder and additional layer of 0 Vicryl sutures and then 2-0 Vicryl sutures followed by karly for the skin. Sterile dressing was applied, the patient tolerated procedure well was taken recovery room in satisfactory condition. I attest to the content of the Intraoperative Record and any orders documented therein. Any exceptions are noted below.
== END 2022-11-01 16:03 | disposition home health service (06) | DRG 516 ==
LOC: ASU 04:55 → 2N 13:44